=== PATIENT | female | born 1945 | race Caucasian/White ===

== ENCOUNTER 2018-11-27 16:02 | Outpatient (CLI) | payer BC, MEDICARE | END 2018-11-27 17:00 | disposition home or self-care (01) | LOC: SLEEP 16:02 | PROVIDERS: ATTEND Otolaryngology Otolaryngology/Facial Plastic Surgery | DX: G47.33 Obstructive sleep apnea (adult) (pediatric) (principal) ==

== ENCOUNTER 2021-01-13 06:41 | Inpatient (IN) | payer BC, MEDICARE ==
[~2021-01-13] VITALS: Ht 154 cm; Wt 89.5 kg
[2021-01-13] MEDS ORDERED: ONDANSETRON 4 MG/2 ML (SDV) Z0FRAN ONE (06:58)
[2021-01-13] MEDS ORDERED: ONDANSETRON 4 MG/2 ML (SDV) Z0FRAN IVP ONE (07:00)
[2021-01-13] MEDS ORDERED: NS IV 1000 ML 1,000 ML IV ONE (07:00)
[2021-01-13 07:09] LABS: BASOPHILS % (AUTO) 0 % (0-10); EOSINOPHILS # (AUTO) 0.1 10^3/uL (0.0-0.3); EOSINOPHILS % (AUTO) 1 % (0-10); HEMATOCRIT 50 % (35-52); HEMOGLOBIN 15.4 g/dL (11.5-16.0); LYMPHOCYTES # (AUTO) 0.6 10^3/uL (1.0-4.0); LYMPHOCYTES % (AUTO) 5 % (12-44); MEAN CORPUSCULAR HEMOGLOBIN 26 pg (25-34); MEAN CORPUSCULAR HGB CONC 31 g/dL (32-36); MEAN CORPUSCULAR VOLUME 85 fL (80-99); MEAN PLATELET VOLUME 9.4 fL (9.0-12.2); MONOCYTES # (AUTO) 0.7 10^3/uL (0.0-1.0); MONOCYTES % (AUTO) 6 % (0-12); NEUTROPHILS # (AUTO) 10.3 10^3/uL (1.8-7.8); NEUTROPHILS % (AUTO) 87 % (42-75); PLATELET COUNT 205 10^3/uL (130-400); WHITE BLOOD COUNT 11.8 10^3/uL (4.3-11.0)
[2021-01-13] MEDS ORDERED: ACETAMINOPHEN 650 MG SUPP (TYLENOL) PR ONE (07:15)
[2021-01-13 07:16] LABS: ALBUMIN 3.7 GM/DL (3.2-4.5); POTASSIUM 4.2 MMOL/L (3.6-5.0)
[2021-01-13] MEDS ORDERED: ACETAMINOPHEN 650 MG SUPP (TYLENOL) ONE (07:16)
[2021-01-13 07:18] LABS: CALCIUM 9.5 MG/DL (8.5-10.1)
[2021-01-13 07:19] LABS: TOTAL PROTEIN 6.7 GM/DL (6.4-8.2)
[2021-01-13 07:20] LABS: BILIRUBIN,TOTAL 2.2 MG/DL (0.1-1.0)
[2021-01-13 07:22] LABS: CREATININE SERUM 0.89 MG/DL (0.60-1.30)
--- NOTE | 2021-01-13 07:22 | ED General ---
General Chief Complaint: Cough/Cold/Flu Symptoms Stated Complaint: N,V,WEAKNESS Nursing Triage Note: TO ED VIA [facility] TO ROOM 9 UNDER COVID PRECAUTIONS NEGATIVE PRESSURE. PER EMS PT VOMITING ALL NIGHT. PT C/O N/V, WEAKNESS, ABD PAIN, GENERALIZED MUSCLE ACHES, COUGH, SOA. HAS HAD COVID VACCINE. Source of Information: Patient Exam Limitations: No Limitations (AASHISH SWIFT MD) History of Present Illness Date Seen by Provider: Jan 13, 2021 Time Seen by Provider: 06:44 Initial Comments This 75-year-old woman presents to the ER this morning via EMS with symptoms of diffuse myalgia and aches, vomiting, diarrhea, shortness of breath, hypoxia, and altered mental status. Symptoms started last night and have progressed. She has history of renal transplant and is immunocompromised. She also is diabetic and uses an insulin pump with continuous glucose monitoring. EMS reports temperature of 100.7 and oxygen saturation of 90% on room air. Patient is alert and responds to voice but she does not answer questions in a meaningful manner. She generally responds with "oh God" or "I do not know" when I asked her questions. History was obtained from her and from EMS. She was vaccinated with the Moderna COVID-19 vaccine in July but she is immunocompromise. She also has history of coronary artery disease and CABG. Her primary care provider is Columba Vel[facility]quez in [place]. 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 Deleon at [facility]. Her transplant lead is Dr. Hutchinson at [facility]. reports her dose of mycophenolate was recently reduced and she recently finished a course of Diflucan 200 mg daily for oral candidiasis. (AASHISH SWIFT MD) Allergies and Home Medications Allergies Coded Allergies: Cephalosporins (Verified Allergy, Mild, rash, 01/13/21) adhesive tape (Verified Allergy, Mild, rash, 01/13/21) Penicillins (Verified Allergy, Unknown, 01/13/21) iodine (Verified Allergy, Unknown, 01/13/21) latex (Verified Allergy, Unknown, 01/13/21) Uncoded Allergies: IV Contrast (Allergy, Unknown, 01/13/21) renal transplant pt Patient Home Medication List Home Medication List Reviewed: Yes (AASHISH SWIFT MD) Review of Systems Review of Systems Constitutional: see HPI, fever EENTM: no symptoms reported Respiratory: no symptoms reported Cardiovascular: no symptoms reported Gastrointestinal: see HPI Genitourinary: no symptoms reported Musculoskeletal: see HPI, muscle pain Skin: no symptoms reported Psychiatric/Neurological: See HPI Hematologic/Lymphatic: No Symptoms Reported Immunological/Allergic: no symptoms reported (AASHISH SWIFT MD) Past Eekeoru-Obirqp-Wbapma Hx Patient Social History Tobacco Use?: No (AASHISH SWIFT MD) Immunizations Up To Date COVID19 Vaccine Host Coordinator: STATES HAS HAD BUT UNKNOWN WHICH KIND (AASHISH SWIFT MD) Past Medical History Surgery/Hospitalization HX: HX KIDNEY TRANSPLANT PT UNABLE TO GIVE INFORMATION Surgeries: Yes CABG, Joint Replacement (Hip), Kidney Transplant Respiratory: No Cardiac: Yes Coronary Artery Disease Neurological: No : No Reproductive Disorders: No Genitourinary: No Gastrointestinal: No Musculoskeletal: Yes Chronic Back Pain Endocrine: Yes Diabetes, 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) HEENT: No Cancer: No Did You Recieve Any Treatments: No Psychosocial: No Integumentary: No (AASHISH SWIFT MD) Physical Exam-Suspected Sepsis Physical Exam Vital Signs Vital Signs - First Documented 01/13/21 01/13/21 06:49 07:03 Temp 37.9 Pulse 112 Resp 24 B/P (MAP) 134/100 (111) Pulse Ox 93 O2 Delivery Room Air O2 Flow Rate 2.00 (BRAYDEN NINO MD) Vital Signs Capillary Refill : Less Than 3 Seconds (AASHISH SWIFT MD) Blood Pressure Mean: 111 Height, Weight, BMI Height: '" Weight: lbs. oz. kg; BMI Method: General Appearance: WD/WN, Moderate Distress HEENT: PERRL/EOMI, Normal ENT Inspection Neck: Normal Inspection Respiratory: Lungs Clear, Normal Breath Sounds, No Accessory Muscle Use Cardiovascular: No Edema, No Murmur, Tachycardia Gastrointestinal: Normal Bowel Sounds, Soft; No Distended; Tenderness (Generalized) Extremity: Normal Inspection, No Pedal Edema, Other (Realized tenderness and sensitivity) Neurologic/Psychiatric: Alert, No Motor/Sensory Deficits, energy administrator II-XII Norm as Tested, Other (Agitated and irritable, responsive but not answering questions consistently) Skin: normal color, warm/dry (AASHISH SWIFT MD) Focused Exam Lactate Level 01/13/21 12:34: Lactic Acid Level 2.01*H 01/13/21 15:16: Lactic Acid Level 2.17*H 01/13/21 16:30: Lactic Acid Level 1.85 (BRAYDEN NINO MD) Lactic Acid Level Laboratory Tests Test 01/13/21 16:30 Lactic Acid Level 1.85 MMOL/L (0.50-2.00) (BRAYDEN NINO MD) Progress/Results/Core Measures Suspected Sepsis SIRS Temperature: Pulse: 112 Respiratory Rate: 24 Laboratory Tests 01/13/21 06:55: White Blood Count 11.8H 01/13/21 16:30: White Blood Count 13.2H Blood Pressure 134 /100 Mean: 111 01/13/21 12:34: Lactic Acid Level 2.01*H 01/13/21 15:16: Lactic Acid Level 2.17*H 01/13/21 16:30: Lactic Acid Level 1.85 Laboratory Tests 01/13/21 06:55: Creatinine 0.89, INR Comment 1.0, Platelet Count 205, Total Bilirubin 2.2H 01/13/21 16:30: Creatinine 0.76, Platelet Count 183, Total Bilirubin 2.6H (AASHISH SWIFT MD) Results/Orders Lab Results Laboratory Tests Test 01/13/21 06:55 01/13/21 07:10 01/13/21 08:15 01/13/21 09:00 Range/Units White Blood Count 11.8 H 4.3-11.0 10^3/uL Red Blood Count 5.94 H 3.80-5.11 10^6/uL Hemoglobin 15.4 11.5-16.0 g/dL Hematocrit 50 35-52 % Mean Corpuscular Volume 85 80-99 fL Mean Corpuscular Hemoglobin 26 25-34 pg Mean Corpuscular Hemoglobin Concent 31 L 32-36 g/dL Red Cell Distribution Width 15.8 H 10.0-14.5 % Platelet Count 205 130-400 10^3/uL Mean Platelet Volume 9.4 9.0-12.2 fL Immature Granulocyte % (Auto) 1 % Neutrophils (%) (Auto) 87 H 42-75 % Lymphocytes (%) (Auto) 5 L 12-44 % Monocytes (%) (Auto) 6 0-12 % Eosinophils (%) (Auto) 1 0-10 % Basophils (%) (Auto) 0 0-10 % Neutrophils # (Auto) 10.3 H 1.8-7.8 10^3/uL Lymphocytes # (Auto) 0.6 L 1.0-4.0 10^3/uL Monocytes # (Auto) 0.7 0.0-1.0 10^3/uL Eosinophils # (Auto) 0.1 0.0-0.3 10^3/uL Basophils # (Auto) 0.0 0.0-0.1 10^3/uL Immature Granulocyte # (Auto) 0.1 0.0-0.1 10^3/uL Neutrophils % (Manual) 81 % Lymphocytes % (Manual) 8 % Monocytes % (Manual) 4 % Band Neutrophils 7 % Blood Morphology Comment NORMAL Prothrombin Time 13.4 12.2-14.7 SEC INR Comment 1.0 0.8-1.4 Activated Partial Thromboplast Time 24 24-35 SEC D-Dimer 3.40 H 0.00-0.49 UG/ML Sodium Level 140 135-145 MMOL/L Potassium Level 4.2 3.6-5.0 MMOL/L Chloride Level 100 98-107 MMOL/L Carbon Dioxide Level 24 21-32 MMOL/L Anion Gap 16 H 5-14 MMOL/L Blood Urea Nitrogen 14 7-18 MG/DL Creatinine 0.89 0.60-1.30 MG/DL Estimat Glomerular Filtration Rate 62 BUN/Creatinine Ratio 16 Glucose Level 238 H 70-105 MG/DL Lactic Acid Level 3.22 *H 0.50-2.00 MMOL/L Calcium Level 9.5 8.5-10.1 MG/DL Corrected Calcium 9.7 8.5-10.1 MG/DL Magnesium Level 1.4 L 1.6-2.4 MG/DL Total Bilirubin 2.2 H 0.1-1.0 MG/DL Aspartate Amino Transf (AST/SGOT) 814 H 5-34 U/L Alanine Aminotransferase (ALT/SGPT) 475 H 0-55 U/L Alkaline Phosphatase 282 H 40-136 U/L Lactate Dehydrogenase 1040 H 125-220 U/L Myoglobin 81.9 10.0-92.0 NG/ML Troponin I < 0.028 <0.028 NG/ML C-Reactive Protein High Sensitivity 1.64 H 0.00-0.50 MG/DL Total Protein 6.7 6.4-8.2 GM/DL Albumin 3.7 3.2-4.5 GM/DL Procalcitonin 1.07 H <0.10 NG/ML Influenza Type A (RT-PCR) Not Detected Not Detecte Influenza Type B (RT-PCR) Not Detected Not Detecte SARS-CoV-2 RNA (RT-PCR) Not Detected Not Detecte Urine Color YELLOW Urine Clarity CLEAR Urine pH 6.0 5-9 Urine Specific [place] 1.020 1.016-1.022 Urine Protein TRACE H NEGATIVE Urine Glucose (UA) 3+ H NEGATIVE Urine Ketones TRACE H NEGATIVE Urine Nitrite NEGATIVE NEGATIVE Urine Bilirubin NEGATIVE NEGATIVE Urine Urobilinogen 1.0 < = 1.0 MG/DL Urine Leukocyte Esterase NEGATIVE NEGATIVE Urine RBC (Auto) NEGATIVE NEGATIVE Urine RBC RARE /HPF Urine WBC 0-2 /HPF Urine Squamous Epithelial Cells 0-2 /HPF Urine Crystals PRESENT H /LPF Urine Amorphous Sediment RARE MICHOACANO URATES H /LPF Urine Bacteria NEGATIVE /HPF Urine Casts PRESENT /LPF Urine Hyaline Casts RARE /LPF Urine Mucus NEGATIVE /LPF Urine Culture Indicated NO Ammonia 35 H 11-32 UMOL/L Lipase 121 H 8-78 U/L Test 01/13/21 09:10 01/13/21 12:34 01/13/21 15:16 01/13/21 16:30 Range/Units Lactic Acid Level 2.69 *H 2.01 *H 2.17 *H 1.85 0.50-2.00 MMOL/L White Blood Count 13.2 H 4.3-11.0 10^3/uL Red Blood Count 4.73 3.80-5.11 10^6/uL Hemoglobin 12.2 # 11.5-16.0 g/dL Hematocrit 40 35-52 % Mean Corpuscular Volume 84 80-99 fL Mean Corpuscular Hemoglobin 26 25-34 pg Mean Corpuscular Hemoglobin Concent 31 L 32-36 g/dL Red Cell Distribution Width 15.7 H 10.0-14.5 % Platelet Count 183 130-400 10^3/uL Mean Platelet Volume 9.8 9.0-12.2 fL Immature Granulocyte % (Auto) 1 % Neutrophils (%) (Auto) 84 H 42-75 % Lymphocytes (%) (Auto) 6 L 12-44 % Monocytes (%) (Auto) 8 0-12 % Eosinophils (%) (Auto) 1 0-10 % Basophils (%) (Auto) 0 0-10 % Neutrophils # (Auto) 11.1 H 1.8-7.8 10^3/uL Lymphocytes # (Auto) 0.8 L 1.0-4.0 10^3/uL Monocytes # (Auto) 1.1 H 0.0-1.0 10^3/uL Eosinophils # (Auto) 0.1 0.0-0.3 10^3/uL Basophils # (Auto) 0.0 0.0-0.1 10^3/uL Immature Granulocyte # (Auto) 0.1 0.0-0.1 10^3/uL Sodium Level 141 135-145 MMOL/L Potassium Level 3.9 3.6-5.0 MMOL/L Chloride Level 106 98-107 MMOL/L Carbon Dioxide Level 24 21-32 MMOL/L Anion Gap 11 5-14 MMOL/L Blood Urea Nitrogen 11 7-18 MG/DL Creatinine 0.76 0.60-1.30 MG/DL Estimat Glomerular Filtration Rate 74 BUN/Creatinine Ratio 14 Glucose Level 129 H 70-105 MG/DL Calcium Level 8.6 8.5-10.1 MG/DL Corrected Calcium 9.4 8.5-10.1 MG/DL Total Bilirubin 2.6 H 0.1-1.0 MG/DL Aspartate Amino Transf (AST/SGOT) 265 H 5-34 U/L Alanine Aminotransferase (ALT/SGPT) 292 H 0-55 U/L Alkaline Phosphatase 189 H 40-136 U/L C-Reactive Protein High Sensitivity 7.09 H 0.00-0.50 MG/DL Total Protein 5.3 L 6.4-8.2 GM/DL Albumin 3.0 L 3.2-4.5 GM/DL Procalcitonin 2.64 H <0.10 NG/ML (BRAYDEN NINO MD) Medications Given in ED Current Medications Medications Dose Ordered Sig/Nehemiah Route Start Time Stop Time Status Last Admin Dose Admin Enoxaparin Sodium 80 mg ONCE ONCE SC 01/13/21 13:15 01/13/21 13:16 DC 01/13/21 13:17 80 MG Lactated Ringer's 1,000 ml @ 125 mls/hr Q8H ONCE IV 01/13/21 13:15 01/13/21 21:14 01/13/21 13:12 125 MLS/HR Lactated Ringer's 1,000 ml @ 125 mls/hr Q8H ONCE IV 01/13/21 18:30 01/14/21 02:29 01/13/21 19:04 125 MLS/HR Lidocaine HCl 10 ml ONCE ONCE TOP 01/13/21 09:00 01/13/21 09:01 DC 01/13/21 09:14 10 ML Magnesium Sulfate/ Dextrose 100 ml @ 100 mls/hr ONCE ONCE IV 01/13/21 10:30 01/13/21 11:29 DC 01/13/21 10:25 100 MLS/HR Meropenem 500 mg/ Sterile Water 10 ml @ 200 mls/hr ONCE ONCE IV 01/13/21 08:30 01/13/21 08:32 DC 01/13/21 09:13 200 MLS/HR (BRAYDEN NINO MD) Vital Signs/I&O Capillary Refill : Less Than 3 Seconds (AASHISH SWIFT MD) Blood Pressure Mean: 111 Progress Note #1: Time: 07:43 Progress Note Septic work-up is underway. IV fluids are infusing. Tylenol suppository was given for fever. Patient seems more alert and talkative now. Respiratory status is stable. COVID-19 and influenza screening swabs were negative. Blood cultures and lactic acid were obtained. Lactic acid is elevated. D-dimer is elevated but CT angiogram will be avoided due to her renal transplant status. We may presumptively treat for pulmonary embolism pending the remainder of the w ork-up until a VQ scan can be performed. CT abdomen and pelvis without is being obtained for further evaluation of abdominal pain and elevated transaminases. Zofran was given for nausea. Progress Note #2: Time: 13:04 Progress Note Septic work-up did not reveal any definite source of infection. Gallbladder ultrasound was inconclusive. HIDA scan is recommended but not available today as there is no remaining nuclear contrast available. I discussed the case with Dr. Quiroz (surgeon) and Dr. Sanchez (hospitalist). Admission to this facility is not excepted at this time as patient has significant issues requiring transplant team, hepatology, and nephrology. [facility] is her home facility for the specialty services, but they are not able to facilitate admission for her at this time. [facility] notified me of this declination at 11:46. Have discussed the situation with the patient and family. Since surgery seems on likely to occur anytime soon, we will allow her to take her oral medications. I will also administer Lovenox as presumptive therapy for possible PE given her elevated D-dimer. I will now be seeking transfer to a facility with the above specialty services. 19:40 - At the time of transition of care I had checked with numerous facilities [facility] [place] including the [facility] in [place], [facility] ([facility]), [facility] in [place], [facility] in [facility], and [facility] in [place]. There are absolutely no beds available in the [facility] [place] to transfer this patient. There was hesitation to admit the patient at this facility given her needs for specialty care. However, given inability to transfer to any other regional facility, arrangements may need to be made for local admission and continued care/work-up until suitable arrangements can be made for transfer. Patient will now be allowed to eat and take her home medications. Vital signs are stable at this time. Care is being transitioned to Dr. NINO. (AASHISH SWIFT MD) Progress Note : Time: 19:45 Progress Note I have assisted Dr. Swift and patient placement. Multiple hospitals were called to try to find facilities to accept transfer as far out as [place] and no beds available in the region. I have rediscussed the case with both Dr. Quiroz and Dr. Sanchez. We will be able to get HIDA scan tomorrow. We have initiated meropenem and vancomycin due to concerns about cholecystitis and elevating white count. Patient has had improvement in her AST and ALT but total bili has increased slightly. Lactic acid is improved. Overall she is doing better and pain is improved. They have agreed to accept the patient here with the understanding that discussion with the patient will be had regarding concerns about possible need for transfer later if she has ductal stone. I did discuss a ll of this at length with the patient and family and they verbalized understanding. We will admit to surgical bed with HIDA scan to be done tomorrow. We will initiate heparin drip at 2 AM (12 hours after Lovenox dosing). We will initiate bridge orders, sepsis order set orders and and the insulin sliding scale orders with heparin drip orders to be initiated at 2 AM using ACS protocol. (BRAYDEN NINO MD) ECG Initial ECG Impression Date: Jan 13, 2021 Initial ECG Impression Time: 07:16 Initial ECG Rate: 105 Initial ECG Rhythm: S.Tach Comment Sinus tachycardia with no ST elevation or depression. No abnormal intervals or axis deviation. (AASHISH SWIFT MD) Departure Communication (Admissions) Time/Spoke to Admitting Phy: 19:14 Time/Spoke to Consulting Phy: 19:05 (BRAYDEN NINO MD) Impression Primary Impression: Acute hepatitis Additional Impressions: Nausea and vomiting Qualified Codes: R11.2 - Nausea with vomiting, unspecified Abdominal pain Qualified Codes: R10.84 - Generalized abdominal pain Elevated d-dimer Hypoxia Cholecystitis Disposition: ADMITTED INPATIENT Condition: Stable Admissions Decision to Admit Reason: Admit from ER (General) Decision to Admit/Date: Jan 13, 2021 Time/Decision to Admit Time: 19:45 (BRAYDEN NINO MD) Departure-Patient Inst. Referrals: COLUMBA VELÁZQUEZ MD (PCP/Family) Primary Care Physician AASHISH SWIFT MD Jan 13, 2021 07:22 BRAYDEN NINO MD Jan 13, 2021 19:51
[2021-01-13 07:24] LABS: BILIRUBIN,URINE NEGATIVE (NEGATIVE); CLARITY,URINE CLEAR; COLOR,URINE YELLOW; GLUCOSE, URINE (UA) 3+ (NEGATIVE); KETONES,URINE TRACE (NEGATIVE); LEUKOCYTE ESTERASE ,URINE NEGATIVE (NEGATIVE); NITRITE,URINE NEGATIVE (NEGATIVE); PROTEIN,URINE TRACE (NEGATIVE)
[2021-01-13 07:26] LABS: FIBRIN DEGRADATION PRODUCTS 3.4 UG/ML (0.00-0.49); PROTHROMBIN TIME PATIENT 13.4 SEC (12.2-14.7)
[2021-01-13 07:40] LABS: MAGNESIUM 1.4 MG/DL (1.6-2.4)
[2021-01-13 07:46] LABS: BACTERIA,URINE NEGATIVE /HPF; RBC,URINE RARE /HPF; SQUAMOUS EPITHELIAL CELL,UR 0-2 /HPF; WBC,URINE 0-2 /HPF
[2021-01-13 07:47] LABS: AMORPHOUS SEDIMENT,UR RARE AMOR URATES /LPF; HYALINE CASTS, URINE RARE /LPF
[2021-01-13 07:51] LABS: BAND NEUTROPHILS 7 %; LYMPHOCYTES % (MANUAL) 8 %; MONOCYTES % (MANUAL) 4 %; NEUTROPHILS % (MANUAL) 81 %; RBC MORPH NORMAL
--- NOTE | 2021-01-13 08:19 | Diagnostic Imaging Report ---
INDICATION: Vomiting all night, nausea, vomiting, weakness, abdominal pain. TECHNIQUE: Single view chest 8:02 AM. CORRELATION STUDY: None FINDINGS: Poststernotomy change. Elevated right diaphragm and crowding at the right lung base with resultant atelectasis. Infiltrate not completely excluded. Left costophrenic angle incompletely imaged. Heart size and mediastinum are within normal limits given technique. IMPRESSION: 1. Elevated right diaphragm with right lung volume loss. Basilar infiltrate would be difficult to exclude. Dictated by: Dictated on workstation # [id number]
--- NOTE | 2021-01-13 08:23 | Diagnostic Imaging Report ---
INDICATION: Abdominal pain and vomiting. TECHNIQUE: Multiple contiguous axial images were obtained through the abdomen and pelvis without the use of intravenous contrast. Auto Exposure Controls were utilized during the CT exam to meet ALARA standards for radiation dose reduction. There is no prior study for comparison. FINDINGS: The visualized portions of the lung bases show some mild right basilar atelectasis. There is no pleural fluid or free intraperitoneal air. The liver shows no focal lesion without contrast. Gallbladder appears grossly unremarkable. The spleen, adrenals, and pancreas appear normal. The [place] kidneys are atrophic and contain a few small cysts. There is a transplant kidney in the right iliac fossa. The transplant kidney appears grossly unremarkable with no evidence for hydronephrosis or perinephric fluid collection. The visualized bowel loops are nondistended or thickened. There is no overt bowel obstruction. There is a small periumbilical hernia containing fat. There are uncomplicated sigmoid diverticuli. There is no pelvic mass or lymphadenopathy. There is a Sotomayor catheter in the bladder. There is a right hip prosthesis. There are extensive arterial calcifications throughout the arterial tree. IMPRESSION: Status post renal transplant. Atrophic [place] kidneys. No abdominal mass or abnormal fluid collection or sign of bowel obstruction. Small ventral hernia containing fat in the periumbilical region. Uncomplicated sigmoid diverticulosis. Dictated by: Dictated on workstation # [id number]
[2021-01-13] MEDS ORDERED: MEROPENEM 500 MG in WATER (STERILE) FOR INJECTION 10 ML IV ONE (08:30)
[2021-01-13] MEDS ORDERED: LIDOCAINE UROJET 2% GEL 10 ML PKG TOP ONE (09:00)
[2021-01-13] MEDS ORDERED: morphine PF (DURAMORPH) 10 MG/10 ML AMP IV ONE (10:30)
[2021-01-13] MEDS ORDERED: MAGNESIUM 1 GM/100 ML IVPB 100 ML IV ONE (10:30)
[2021-01-13] MEDS ORDERED: morphine INJ 10 MG/ML 1ML (SYR OR VIAL) IVP STA ×3 (10:37→16:02)
--- NOTE | 2021-01-13 10:49 | Diagnostic Imaging Report ---
PROCEDURE: US Gallbladder. TECHNIQUE: Multiple real-time grayscale images were obtained over the right upper quadrant in various projections. INDICATION: Elevated liver enzymes. COMPARISON: CT abdomen pelvis from earlier same day FINDINGS: The liver is normal in size and echogenicity. There is no focal hepatic mass. The main portal vein is patent with antegrade flow. The gallbladder is suboptimally visualized due to surrounding bowel gas. There appears to be either decompressed gallbladder with pericholecystic fluid or some gallbladder wall sloughing. The common bile duct measures up to 0.5 cm in diameter. No intrahepatic biliary dilation. The visualized portions of the pancreas are normal. Portions of the head and tail are obscured by overlying bowel gas. Right lower quadrant renal transplant within the iliac fossa is normal in appearance. IMPRESSION: 1. Poor visualization of the gallbladder due to overlying bowel gas from the colon. Where visualized, there may be either pericholecystic fluid or less likely sloughing of the gallbladder wall. Consider surgical consultation if not already performed. If further imaging is warranted, consider nuclear medicine HIDA scan to evaluate for cystic duct patency. 2. No biliary duct dilatation. Dictated by: Dictated on workstation # [id number]
[2021-01-13] MEDS ORDERED: LACTATED RINGERS 1,000 ML IV ONE ×2 (13:15→18:30)
[2021-01-13] MEDS ORDERED: ENOXAPARIN 80 MG/0.8 ML (LOVENOX) SYR SC ONE (13:15)
[2021-01-13 16:34] LABS: BASOPHILS % (AUTO) 0 % (0-10); EOSINOPHILS # (AUTO) 0.1 10^3/uL (0.0-0.3); EOSINOPHILS % (AUTO) 1 % (0-10); HEMATOCRIT 40 % (35-52); HEMOGLOBIN 12.2 g/dL (11.5-16.0); LYMPHOCYTES # (AUTO) 0.8 10^3/uL (1.0-4.0); LYMPHOCYTES % (AUTO) 6 % (12-44); MEAN CORPUSCULAR HEMOGLOBIN 26 pg (25-34); MEAN CORPUSCULAR HGB CONC 31 g/dL (32-36); MEAN CORPUSCULAR VOLUME 84 fL (80-99); MEAN PLATELET VOLUME 9.8 fL (9.0-12.2); MONOCYTES # (AUTO) 1.1 10^3/uL (0.0-1.0); MONOCYTES % (AUTO) 8 % (0-12); NEUTROPHILS # (AUTO) 11.1 10^3/uL (1.8-7.8); NEUTROPHILS % (AUTO) 84 % (42-75); PLATELET COUNT 183 10^3/uL (130-400); WHITE BLOOD COUNT 13.2 10^3/uL (4.3-11.0)
[2021-01-13 16:45] LABS: POTASSIUM 3.9 MMOL/L (3.6-5.0)
[2021-01-13 16:47] LABS: CALCIUM 8.6 MG/DL (8.5-10.1)
[2021-01-13 16:48] LABS: TOTAL PROTEIN 5.3 GM/DL (6.4-8.2)
[2021-01-13 16:50] LABS: BILIRUBIN,TOTAL 2.6 MG/DL (0.1-1.0)
[2021-01-13 16:51] LABS: CREATININE SERUM 0.76 MG/DL (0.60-1.30)
[2021-01-13] MEDS ORDERED: VANCOMYCIN INJECTION 750 MG in NS (IVPB) 250 ML IV SCH (18:30)
[2021-01-13] MEDS: MEROPENEM 500 MG in WATER (STERILE) FOR INJECTION 10 ML IV SCH (18:45)
[2021-01-13] MEDS ORDERED: VANCOMYCIN INJECTION 1,500 MG in NS IV 500 ML 500 ML IV NR (19:00)
[2021-01-13] MEDS ORDERED: morphine INJ 10 MG/ML 1ML (SYR OR VIAL) IVP ONE (20:45)
[2021-01-13 21:22] LABS: HEPATITIS C ANTIBODY C Non-Reactive (Non-Reactive)
[2021-01-13 21:30] VITALS: BP 119/69
[2021-01-13 21:45] VITALS: BP 112/68
[2021-01-13 22:00] VITALS: BP 118/69
[2021-01-13 22:15] VITALS: BP 104/65
[2021-01-13] MEDS: NS IV 1000 ML 1,000 ML IV SCH (22:40)
[2021-01-13] MEDS ORDERED: ONDANSETRON 4 MG/2 ML (SDV) Z0FRAN IV PRN (22:45)
[2021-01-13 23:25] VITALS: BP 127/66
[2021-01-13] MEDS: morphine INJ 4 MG/ML 1 ML (VIAL/SYRINGE) IV PRN (23:25)
[2021-01-14] VITALS (7 sets, daily range): BP systolic 130–159; BP diastolic 67–88
[2021-01-14] MEDS ORDERED: HEParin DRIP 25000 UNIT/500ML 500 ML IV SCH
[2021-01-14] MEDS: MEROPENEM 500 MG in WATER (STERILE) FOR INJECTION 10 ML IV SCH ×4 (01:09→20:47)
[2021-01-14] MEDS ORDERED: HEParin 1000 UNIT/ML (10ML VIAL) FOR BOLUS ONE (02:07)
[2021-01-14] MEDS: HEParin DRIP 25000 UNIT/500ML 500 ML IV SCH (02:45)
[2021-01-14] MEDS ORDERED: HEParin 1000 UNIT/ML (10ML VIAL) FOR BOLUS IV ONE (03:00)
[2021-01-14] MEDS: NS IV 1000 ML 1,000 ML IV SCH ×3 (03:58→21:54)
[2021-01-14 04:26] LABS: BASOPHILS % (AUTO) 0 % (0-10); EOSINOPHILS # (AUTO) 0.1 10^3/uL (0.0-0.3); EOSINOPHILS % (AUTO) 1 % (0-10); HEMATOCRIT 45 % (35-52); HEMOGLOBIN 13.3 g/dL (11.5-16.0); LYMPHOCYTES # (AUTO) 1.1 10^3/uL (1.0-4.0); LYMPHOCYTES % (AUTO) 8 % (12-44); MEAN CORPUSCULAR HEMOGLOBIN 26 pg (25-34); MEAN CORPUSCULAR HGB CONC 30 g/dL (32-36); MEAN CORPUSCULAR VOLUME 86 fL (80-99); MEAN PLATELET VOLUME 9.8 fL (9.0-12.2); MONOCYTES # (AUTO) 1.1 10^3/uL (0.0-1.0); MONOCYTES % (AUTO) 8 % (0-12); NEUTROPHILS # (AUTO) 11.3 10^3/uL (1.8-7.8); NEUTROPHILS % (AUTO) 83 % (42-75); PLATELET COUNT 182 10^3/uL (130-400); WHITE BLOOD COUNT 13.6 10^3/uL (4.3-11.0)
[2021-01-14 04:37] LABS: ALBUMIN 3.3 GM/DL (3.2-4.5); POTASSIUM 4.1 MMOL/L (3.6-5.0)
[2021-01-14 04:38] LABS: CALCIUM 9.3 MG/DL (8.5-10.1)
[2021-01-14 04:41] LABS: BILIRUBIN,TOTAL 3.1 MG/DL (0.1-1.0)
[2021-01-14 04:43] LABS: CREATININE SERUM 0.8 MG/DL (0.60-1.30)
[2021-01-14] MEDS: morphine INJ 4 MG/ML 1 ML (VIAL/SYRINGE) IV PRN ×3 (05:17→18:04)
[2021-01-14] MEDS: inSUlin ASPART (NovoLOG) 1 UNIT/0.01 ML (CHARGE PER UNIT) SC SCH ×4 (06:28→19:57)
[2021-01-14] MEDS ORDERED: CATHETER FLUSH 10 ML SYR IV PRN (07:30)
--- NOTE | 2021-01-14 10:10 | History & Physical-Hospitalist ---
History of Present Illness HPI/Chief Complaint Pt is a 75yoCF with a PMH of renal transplant who presented to the ER due to 1 week of nausea and confusion. She was unable to provide much history in the ER due to AMS but was found to be febrile with a leukocytosis and transaminitis. Due to her history of a renal transplant attempts and severe sepsis in the ER with AMS attempts were made at transfer to her transplant team then. Due to COVID surgery regionally the ER called roughly 20 places and they were unable to find placement for her. She was admitted here for further care. CT was doen and showed her renal transplant and uncomplicated diverticulosis. Abd usg was unrevealing as well. HIDA scan was ordered for this morning. She reports feeling much better today and really her only issue is irritation from the catheter. We discussed plan for HIDA scan and possible need for surgery or transfer depending on the findings. Source: patient Date Seen 01/14/21 Time Seen by a Provider: 10:10 Attending Physician Nataliia Sanchez MD PCP Columba Velázquez MD Referring Physician Date of Admission Jan 13, 2021 at 19:40 Home Medications & Allergies Home Medications Reviewed patient Home Medication Reconciliation performed by pharmacy medication reconciliations optoelectronic technician and/or nursing. Patients Allergies have been reviewed. Allergies Allergies Coded Allergies Cephalosporins (Verified Allergy, Mild, rash, 01/13/21) adhesive tape (Verified Allergy, Mild, rash, 01/13/21) Penicillins (Verified Allergy, Unknown, 01/13/21) iodine (Verified Allergy, Unknown, 01/13/21) latex (Verified Allergy, Unknown, 01/13/21) Uncoded Allergies IV Contrast ( Allergy, Unknown, 01/13/21) renal transplant pt Past Letgurx-Ahltov-Ajjwfd Hx Patient Social History Tobacco Use?: No Use of E-Cig and/or Vaping dev: No Substance use?: No Alcohol Use?: No Pt feels they are or have been: No Current Status status: No status: No Advance Directives: No Communicates: Verbally Primary Language: Danish Preferred Spoken Language: Danish Is interpretation needed?: No Implanted or Applied Medical D: Insulin pump Past Medical History Surgeries: CABG, Joint Replacement (Hip), Kidney Transplant Coronary Artery Disease Chronic Back Pain Diabetes, 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) Did You Recieve Any Treatments: No Review of Systems Constitutional: fever, malaise EENTM: no symptoms reported Respiratory: No cough, No short of breath Cardiovascular: No chest pain, No edema, No palpitations Gastrointestinal: abdominal pain, nausea, vomiting Genitourinary: dysuria Musculoskeletal: no symptoms reported Skin: no symptoms reported Psychiatric/Neurological: No Symptoms Reported Physical Exam Physical Exam Vital Signs Vital Signs - First Documented 01/13/21 01/13/21 01/15/21 06:49 07:03 02:04 Temp 37.9 Pulse 112 Resp 24 B/P (MAP) 134/100 (111) Pulse Ox 93 O2 Delivery Room Air O2 Flow Rate 2.00 FiO2 21 Capillary Refill : Less Than 3 Seconds Height, Weight, BMI Height: '" Weight: lbs. oz. kg; 31.41 BMI Method: General Appearance: No Apparent Distress, WD/WN, Obese HEENT: PERRL/EOMI, Moist Mucous Membranes; No Scleral Icterus (L), No Scleral Icterus (R) Neck: Normal Inspection, Supple Respiratory: Lungs Clear, No Accessory Muscle Use, No Respiratory Distress Cardiovascular: Regular Rate, Rhythm, No JVD, No Murmur Gastrointestinal: Normal Bowel Sounds, Soft; No Distended, No Guarding; Tenderness (mild RUQ) Extremity: Normal Capillary Refill, No Calf Tenderness, No Pedal Edema Neurologic/Psychiatric: Alert, Oriented x3, No Motor/Sensory Deficits Skin: Normal Color, Warm/Dry Results Results/Procedures Labs Laboratory Tests 01/15/21 04:39 01/16/21 04:03 Patient resulted labs reviewed. Imaging: Reviewed Imaging Report Imaging [facility], [place] NAME: EMMANUELTEVIN [facility] REC#: [id number] PT STATUS: REG ER : 1945 PHYSICIAN: AASHISH BOND MD ADMIT DATE: 01/13/21/ER Signed Date of Exam:01/13/21 CT ABDOMEN/PELVIS WO INDICATION: Abdominal pain and vomiting. TECHNIQUE: Multiple contiguous axial images were obtained through the abdomen and pelvis without the use of intravenous contrast. Auto Exposure Controls were utilized during the CT exam to meet ALARA standards for radiation dose reduction. There is no prior study for comparison. FINDINGS: The visualized portions of the lung bases show some mild right basilar atelectasis. There is no pleural fluid or free intraperitoneal air. The liver shows no focal lesion without contrast. Gallbladder appears grossly unremarkable. The spleen, adrenals, and pancreas appear normal. The [place] kidneys are atrophic and contain a few small cysts. There is a transplant kidney in the right iliac fossa. The transplant kidney appears grossly unremarkable with no evidence for hydronephrosis or perinephric fluid collection. The visualized bowel loops are nondistended or thickened. There is no overt bowel obstruction. There is a small periumbilical hernia containing fat. There are uncomplicated sigmoid diverticuli. There is no pelvic mass or lymphadenopathy. There is a Sotomaoyr catheter in the bladder. There is a right hip prosthesis. There are extensive arterial calcifications throughout the arterial tree. IMPRESSION: Status post renal transplant. Atrophic [place] kidneys. No abdominal mass or abnormal fluid collection or sign of bowel obstruction. Small ventral hernia containing fat in the periumbilical region. Uncomplicated sigmoid diverticulosis. Dictated by: Dictated on workstation # [id number] Dict: 01/13/21816 Trans: 01/13/21 0835 [id number] Interpreted by: ALFREDO BOSE MD Electronically signed by: ALFREDO BOSE MD 01/13/21 0835 [facility], [place] NAME: TEVIN BENIETZ [facility] REC#: [id number] PT STATUS: REG ER : 1945 PHYSICIAN: AASHISH BOND MD ADMIT DATE: 01/13/21/ER Signed Date of Exam:01/13/21 US GALLBLADDER [id number] PROCEDURE: US Gallbladder. TECHNIQUE: Multiple real-time grayscale images were obtained over the right upper quadrant in various projections. INDICATION: Elevated liver enzymes. COMPARISON: CT abdomen pelvis from earlier same day FINDINGS: The liver is normal in size and echogenicity. There is no focal hepatic mass. The main portal vein is patent with antegrade flow. The gallbladder is suboptimally visualized due to surrounding bowel gas. There appears to be either decompressed gallbladder with pericholecystic fluid or some gallbladder wall sloughing. The common bile duct measures up to 0.5 cm in diameter. No intrahepatic biliary dilation. The visualized portions of the pancreas are normal. Portions of the head and tail are obscured by overlying bowel gas. Right lower quadrant renal transplant within the iliac fossa is normal in appearance. IMPRESSION: 1. Poor visualization of the gallbladder due to overlying bowel gas from the colon. Where visualized, there may be either pericholecystic fluid or less likely sloughing of the gallbladder wall. Consider surgical consultation if not already performed. If further imaging is warranted, consider nuclear medicine HIDA scan to evaluate for cystic duct patency. 2. No biliary duct dilatation. Dictated by: Dictated on workstation # [id number] Dict: 01/13/21 1044 Trans: 01/13/21 1226 [facility] [id number] Interpreted by: YAZMIN GRIGGS MD Electronically signed by: YAZMIN GRIGGS MD 01/13/21 1226 Assessment/Plan Admission Diagnosis Severe sepsis Admission Status: Inpatient Order (span 2 midnights) Reason for Inpatient Admission: see below Assessment and Plan Severe sepsis Immunocompromised state from renal transplant transaminitis acute hypoxic respiratory failure elevated d-dimer Unable to visualization gallblader on usg HIDA scan for today Liver enzymes trending down and hepatitis panel negative Continue IV abx Discussed that if HIDA shows obstruction she will require transfer for ERCP and due to COVID surge and regional hospitals being on diversion this may take days, they express understanding Lactic acidosis resolved Surgery consulted appreciate recs Continue heparin gtt for elevated d-dimer Continue immune suppressants HTN BP well controlled, trend DVT ppx: Heparin gtt for now until VQ scan Update at 1100: Hida scan reveals common duct obstruction. Will need transfer for ERCP Update at 1700: I called and updated family that I have an accepting facility in [place], [place]. [facility] does not have bed availability but is hopeful they will tomorrow. They have declined bed at [place] and would like to try to get to tomorrow. I clarified that this is not a safe bet that there will be a bed and they are gambling with the bed availibility. We did discuss the risks and benefits of this and they expressed understanding and would still like to wait and attempt [facility] tomorrow. Diagnosis/Problems Diagnosis/Problems (1) Severe sepsis (2) Renal transplant, status post (3) Acute hepatitis Status: Acute (4) Elevated d-dimer Status: Acute (5) Hypoxia Status: Acute MIRNA,NATALIIA M MD Jan 14, 2021 10:10
[2021-01-14] MEDS: VANCOMYCIN 1250 MG/NS 250 ML IVPB IV SCH ×4 (12:29→19:34)
--- NOTE | 2021-01-14 12:34 | Diagnostic Imaging Report ---
INDICATION: Hepatitis. TECHNIQUE: Patient was administered 5.3 mCi technetium-99m Choletec intravenously, and imaging over the abdomen was performed. Delayed imaging at 4 hours was also performed. FINDINGS: There is homogeneous uptake of activity throughout the liver. Images carried out at 60 minutes are without evidence of excretion of activity into the gallbladder or common duct. No bowel activity is seen. Delayed images demonstrate activity within the gallbladder. No definite bowel activity is seen, and findings are concerning for common duct obstruction. IMPRESSION: Patent cystic duct. No definite activity is seen in the small bowel, concerning for common duct obstruction. MRCP or ERCP could be performed for further evaluation. Dictated by: Dictated on workstation # [id number]
[2021-01-14] MEDS ORDERED: NEBI5TAB8 PO (12:46)
[2021-01-14] MEDS ORDERED: MYCO180T3 PO (12:46)
[2021-01-14] MEDS ORDERED: MAGN400T39 PO (12:46)
[2021-01-14] MEDS ORDERED: TACR1CAP8 PO (12:46)
[2021-01-14] MEDS ORDERED: DOCU100T2 PO (12:46)
[2021-01-14] MEDS ORDERED: KRIL1CAP18 PO (12:46)
[2021-01-14] MEDS ORDERED: EZET10TA49 PO (12:46)
[2021-01-14] MEDS ORDERED: ROSU40TA23 PO (12:46)
[2021-01-14] MEDS ORDERED: PRED5TAB PO (12:46)
[2021-01-14] MEDS ORDERED: OXYC10TA7 PO (12:46)
[2021-01-14] MEDS ORDERED: ASPI-1238 PO (12:46)
[2021-01-14] MEDS ORDERED: DEXL60CA PO (12:46)
[2021-01-14] MEDS ORDERED: SENN-273 PO (12:46)
[2021-01-14] MEDS ORDERED: LOSA25TA41 PO (12:46)
[2021-01-14] MEDS ORDERED: CALC-250 PO (12:46)
[2021-01-14] MEDS ORDERED: INSU100V16 SQ (12:46)
[2021-01-14] MEDS ORDERED: LOSARTAN 25 MG (COZAAR) TAB PO PRN (13:45)
[2021-01-14] MEDS ORDERED: SENNA W/DOCUSATE (SENOKOT S) TABLET PO PRN (13:45)
--- NOTE | 2021-01-14 15:26 | Consultation - Surgery ---
History of Present Illness History of Present Illness Patient Consulted On(dawit/time) 01/14/21 07:20 Date Seen by Provider: Jan 14, 2021 Time Seen by Provider: 07:20 History of Present Illness Consult requested by Dr. Caldwell, for questionable cholecystitis abdominal pain nausea and vomiting. Patient is a 75-year-old female who states that recently she been having right upper quadrant abdominal pain on and off. Patient prior to this has not had any significant issues. She is having nausea and vomiting and slightly increasing shortness of breath. Patient and her state that pain may be related to diet. Nothing really seem to make it better. Her pain was moderate to severe last night and today moderate as well. Patient states the pain medication does help. Patient had elevated white count and transaminitis and elevated bilirubin. The CT scan was normal and patient had gallbladder ultrasound that was not adequately visualized in gallbladder but suspicious for possible gallbladder pathology. Patient has history of renal transplant. She was unable to be transferred yesterday therefore she was admitted overnight. Patient to have HIDA scan today. Allergies and Home Medications Allergies Coded Allergies: Cephalosporins (Verified Allergy, Mild, rash, 01/13/21) adhesive tape (Verified Allergy, Mild, rash, 01/13/21) Penicillins (Verified Allergy, Unknown, 01/13/21) iodine (Verified Allergy, Unknown, 01/13/21) latex (Verified Allergy, Unknown, 01/13/21) Uncoded Allergies: IV Contrast (Allergy, Unknown, 01/13/21) renal transplant pt Home Medications Aspirin 81 Mg Tablet., 81 MG PO DAILY, (Reported) Last Action: Continued Cholecalciferol (Vitamin D3) 125 Mcg Tablet, 125 MCG PO DAILY, (Reported) Last Action: Continued Dexlansoprazole 60 Mg bp, 60 MG PO DAILY, (Reported) Last Action: Converted Docusate Sodium 100 Mg Tablet, 100 MG PO 2-3 TIMES DAILY, (Reported) Last Action: Converted Ezetimibe 10 Mg Tablet, 10 MG PO HS, (Reported) Last Action: Continued Insulin Aspart 100 Unit/1 Ml Susp, UNIT SQ AC PRN for PER PUMP, (Reported) Last Action: Reviewed Krill/Om-3/Dha/Epa/Phospho/Ast 1 Each Capsule, 1 EACH PO DAILY, (Reported) Last Action: Converted Losartan Potassium 25 Mg Tablet, 25 MG PO DAILY PRN for BLOOD PRESSURE, (Reported) Last Action: Continued Magnesium Oxide 400 Mg Tablet, 800 MG PO DAILY, (Reported) Last Action: Converted Mycophenolate Sodium 180 Mg Tablet.dr, 180 MG PO BID, (Reported) Last Action: Converted Nebivolol HCl 5 Mg Tablet, 5 MG PO DAILY, (Reported) Last Action: Continued Oxycodone HCl 10 Mg Tablet, 10 MG PO Q4H PRN for PAIN-SEVERE (8-10), (Reported) Last Action: Converted Prednisone 5 Mg Tablet, 5 MG PO DAILY, (Reported) Last Action: Continued Rosuvastatin Calcium 40 Mg Tablet, 40 MG PO HS, (Reported) Last Action: Converted Sennosides/Docusate Sodium 1 Each Tablet, 1 EACH PO DAILY PRN for CONSTIPATION- 6TH LINE, (Reported) Last Action: Continued Tacrolimus 1 Mg Capsule, 2 MG PO BID, (Reported) TAKES 2 (1MG) CAPS Last Action: Continued Patient Home Medication List Home Medication List Reviewed: Yes Past Jtihsnd-Mumzki-Cvetwr Hx Patient Social History Smoking Status: Never a Smoker Alcohol Use?: No Have you traveled recently?: No Surgeries History of Surgeries: Yes Surgeries: CABG, Joint Replacement (Hip), Kidney Transplant Respiratory History of Respiratory Disorde: No Cardiovascular History of Cardiac Disorders: Yes Cardiac Disorders: Coronary Artery Disease Neurological History of Neurological Disord: No Reproductive System : No Hx Reproductive Disorders: No Genitourinary History of Genitourinary Disor: No Gastrointestinal History of Gastrointestinal Di: No Musculoskeletal History of Musculoskeletal Dis: Yes Musculoskeletal Disorders: Chronic Back Pain Endocrine History of Endocrine Disorders: Yes Endocrine Disorders: Diabetes, 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) HEENT History of HEENT Disorders: No Cancer History of Cancer: No Psychosocial History of Psychiatric Problem: No Integumentary History of Skin or Integumenta: No Reviewed Nursing Assessment Reviewed/Agree w Nursing PMH: Yes Family Medical History Significant Family History: No Pertinent Family Hx Review of Systems-General Constitutional: fever, weakness EENTM: No blurred vision, No double vision Respiratory: No cough, No dyspnea on exertion Cardiovascular: No chest pain, No palpitations Gastrointestinal: abdominal pain (RUQ), nausea, vomiting Genitourinary: No decreased output, No discharge Musculoskeletal: No back pain, No joint pain Skin: No change in color, No change in hair/nails Psychiatric/Neurological: Denies Anxiety, Denies Depressed, Denies Emotional Problems All Other Systems Reviewed Negative Unless Noted: Yes (Negative excepted noted.) Physical Exam-General Problems Physical Exam Vital Signs Vital Signs - First Documented 01/13/21 01/13/21 06:49 07:03 Temp 37.9 Pulse 112 Resp 24 B/P (MAP) 134/100 (111) Pulse Ox 93 O2 Delivery Room Air O2 Flow Rate 2.00 Capillary Refill : Less Than 3 Seconds General Appearance: no apparent distress, obese HEENT: PERRL/EOMI, normal ENT inspection Neck: non-tender, supple Respiratory: chest non-tender, no respiratory distress, no accessory muscle use Cardiovascular: regular rate, rhythm, no JVD Gastrointestinal: soft; No distended, No guarding; tenderness (Right upper quadrant) Rectal: deferred Back: no CVA tenderness, no vertebral tenderness Extremities: non-tender, normal inspection Neurologic/Psychiatric: no motor/sensory deficits, alert, normal mood/affect, oriented x 3 Skin: normal color, warm/dry Lymphatic: no adenopathy Data Review Labs Laboratory Tests 01/13/21 16:30: White Blood Count 13.2H, Red Blood Count 4.73, Hemoglobin 12.2#, Hematocrit 40, Mean Corpuscular Volume 84, Mean Corpuscular Hemoglobin 26, Mean Corpuscular Hemoglobin Concent 31L, Red Cell Distribution Width 15.7H, Platelet Count 183, Mean Platelet Volume 9.8, Immature Granulocyte % (Auto) 1, Neutrophils (%) (Auto) 84H, Lymphocytes (%) (Auto) 6L, Monocytes (%) (Auto) 8, Eosinophils (%) (Auto) 1, Basophils (%) (Auto) 0, Neutrophils # (Auto) 11.1H, Lymphocytes # (Auto) 0.8L, Monocytes # (Auto) 1.1H, Eosinophils # (Auto) 0.1, Basophils # (Auto) 0.0, Immature Granulocyte # (Auto) 0.1, Sodium Level 141, Potassium Level 3.9, Chloride Level 106, Carbon Dioxide Level 24, Anion Gap 11, Blood Urea Nitrogen 11, Creatinine 0.76, Estimat Glomerular Filtration Rate 74, BUN/Creatinine Ratio 14, Glucose Level 129H, Lactic Acid Level 1.85, Calcium Level 8.6, Corrected Calcium 9.4, Total Bilirubin 2.6H, Aspartate Amino Transf (AST/SGOT) 265H, Alanine Aminotransferase (ALT/SGPT) 292H, Alkaline Phosphatase 189H, C-Reactive Protein High Sensitivity 7.09H, Total Protein 5.3L, Albumin 3.0L, Procalcitonin 2.64H 01/14/21 01:30: Activated Partial Thromboplast Time 29 01/14/21 04:20: White Blood Count 13.6H, Red Blood Count 5.18H, Hemoglobin 13.3, Hematocrit 45, Mean Corpuscular Volume 86, Mean Corpuscular Hemoglobin 26, Mean Corpuscular Hemoglobin Concent 30L, Red Cell Distribution Width 16.2H, Platelet Count 182, Mean Platelet Volume 9.8, Immature Granulocyte % (Auto) 1, Neutrophils (%) (Auto) 83H, Lymphocytes (%) (Auto) 8L, Monocytes (%) (Auto) 8, Eosinophils (%) (Auto) 1, Basophils (%) (Auto) 0, Neutrophils # (Auto) 11.3H, Lymphocytes # (Auto) 1.1, Monocytes # (Auto) 1.1H, Eosinophils # (Auto) 0.1, Basophils # (Auto) 0.0, Immature Granulocyte # (Auto) 0.1, Sodium Level 141, Potassium Level 4.1, Chloride Level 106, Carbon Dioxide Level 23, Anion Gap 12, Blood Urea Nitrogen 9, Creatinine 0.80, Estimat Glomerular Filtration Rate 70, BUN/Creatinine Ratio 11, Glucose Level 168H, Calcium Level 9.3, Corrected Calcium 9.9, Total Bilirubin 3.1H, Aspartate Amino Transf (AST/SGOT) 121H, Alanine Aminotransferase (ALT/SGPT) 228H, Alkaline Phosphatase 181H, C-Reactive Protein High Sensitivity 12.25H, Total Protein 6.0L, Albumin 3.3, Procalcitonin 1.79H, Triglycerides Level 89, Cholesterol Level 127, LDL Cholesterol Direct 55, VLDL Cholesterol 18, HDL Cholesterol 39L 01/14/21 07:47: Activated Partial Thromboplast Time 186*H Microbiology 01/13/21 Blood Culture - Preliminary, Resulted Gram Negative Tito Assessment/Plan Assessment/Plan Assessment/Plan Right upper quadrant abdominal pain Nausea and vomiting History of renal transplant Transaminitis with hyperbilirubinemia Patient with no clear source of patient's symptoms. Patient gallbladder not adequately visualized. Patient could have cholecystitis or choledocholithiasis. We will get HIDA scan to further evaluate which this is scheduled for this morning. If cystic duct is patent then not acute cholecystitis. This will also evaluate whether or not the patient has obstruction in the common bile duct. If so will need ERCP. MASSIEL BOBO DO Jan 14, 2021 15:26
[2021-01-14] MEDS ORDERED: predniSONE 5 MG TAB PO ONE (16:00)
[2021-01-14] MEDS: DOCUSATE SODIUM 100 MG (COLACE) CAP PO SCH (20:46)
[2021-01-14] MEDS ORDERED: ROSUVASTATIN 20 MG (CRESTOR) TABLET PO SCH (21:00)
[2021-01-14] MEDS ORDERED: eZETimibe 10 MG (ZETIA) TABLET PO SCH (21:00)
[2021-01-14] MEDS ORDERED: TACROLIMUS 1 MG (PROGRAF) CAP NON-FORMULARY PO SCH (21:00)
[2021-01-14] MEDS ORDERED: MYCOPHENOLATE SODIUM 180 MG PO SCH (21:00)
[2021-01-15] VITALS (17 sets, daily range): BP systolic 96–155; BP diastolic 39–100
[2021-01-15] MEDS: HEParin DRIP 25000 UNIT/500ML 500 ML IV SCH (01:06)
[2021-01-15] MEDS ORDERED: FUROSEMIDE 40 MG/4 ML INJ (LASIX) IVP ONE (01:45)
[2021-01-15] MEDS ORDERED: RT-ALBUTEROL SULF 2.5 MG/3 ML PRE-MIX VIAL INH PRN (02:15)
[2021-01-15 04:51] LABS: HEMATOCRIT 42 % (35-52); HEMOGLOBIN 12.5 g/dL (11.5-16.0); MEAN CORPUSCULAR HEMOGLOBIN 26 pg (25-34); MEAN CORPUSCULAR HGB CONC 30 g/dL (32-36); MEAN CORPUSCULAR VOLUME 88 fL (80-99); MEAN PLATELET VOLUME 9.9 fL (9.0-12.2); PLATELET COUNT 184 10^3/uL (130-400); WHITE BLOOD COUNT 10.3 10^3/uL (4.3-11.0)
[2021-01-15] MEDS: MEROPENEM 500 MG in WATER (STERILE) FOR INJECTION 10 ML IV SCH ×3 (04:56→23:04)
[2021-01-15 05:00] LABS: ALBUMIN 3.2 GM/DL (3.2-4.5); POTASSIUM 4.1 MMOL/L (3.6-5.0)
[2021-01-15 05:01] LABS: CALCIUM 8.7 MG/DL (8.5-10.1)
[2021-01-15 05:04] LABS: BILIRUBIN,TOTAL 1.1 MG/DL (0.1-1.0)
[2021-01-15 05:06] LABS: CREATININE SERUM 0.81 MG/DL (0.60-1.30)
[2021-01-15] MEDS: VANCOMYCIN 1250 MG/NS 250 ML IVPB IV SCH ×4 (06:17→20:14)
[2021-01-15] MEDS: inSUlin ASPART (NovoLOG) 1 UNIT/0.01 ML (CHARGE PER UNIT) SC SCH ×4 (07:10→20:13)
[2021-01-15] MEDS ORDERED: LORazepam 0.5 MG (ATIVAN) TABLET PO ONE (07:15)
[2021-01-15] MEDS ORDERED: MAGNESIUM OXIDE (MAG-OX)400 MG TAB PO SCH (08:00)
[2021-01-15] MEDS: DOCUSATE SODIUM 100 MG (COLACE) CAP PO SCH ×3 (08:45→20:17)
[2021-01-15] MEDS: predniSONE 5 MG TAB PO SCH (08:45)
[2021-01-15] MEDS ORDERED: PANTOPRAZOLE 40 MG (PROTONIX) TAB PO SCH (09:00)
[2021-01-15] MEDS ORDERED: VITAMIN D3 125 MCG (5,000 UNITS) CAPSULE PO SCH (09:00)
[2021-01-15] MEDS ORDERED: OMEGA 3 (FISH OIL) 1000 MG CAP PO SCH (09:00)
[2021-01-15] MEDS ORDERED: ASPIRIN E.C. 81 MG (ECOTRIN) TAB PO SCH (09:00)
[2021-01-15 09:55] LABS: BILIRUBIN,URINE 1+ (NEGATIVE); CLARITY,URINE CLOUDY; COLOR,URINE YELLOW; GLUCOSE, URINE (UA) NEGATIVE (NEGATIVE); KETONES,URINE NEGATIVE (NEGATIVE); LEUKOCYTE ESTERASE ,URINE NEGATIVE (NEGATIVE); NITRITE,URINE NEGATIVE (NEGATIVE); PROTEIN,URINE TRACE (NEGATIVE)
[2021-01-15 10:19] LABS: AMORPHOUS SEDIMENT,UR LARGE AMOR URATES /LPF; BACTERIA,URINE NEGATIVE /HPF; WBC,URINE RARE /HPF
[2021-01-15 11:00] LABS: ABG BASE EXCESS 1.3 MMOL/L (-2.5-2.5); ABG OXYGEN SATURATION 97 % (94-100); ABG PCO2 65 MMHG (35-45); ABG PO2 87 MMHG (79-93); ABG TCO2 29.9 MMOL/L (21.0-31.0); PATIENT TEMP 36.8; VENTILATOR NO
[2021-01-15 11:06] LABS: ABG PH 7.25 (7.37-7.43)
--- NOTE | 2021-01-15 11:11 | Progress Note - Hospitalist ---
Subjective HPI/CC On Admission Date Seen by Provider: Jan 15, 2021 Time Seen by Provider: 08:00 Pt is a 75yoCF with a PMH of renal transplant who presented to the ER due to 1 week of nausea and confusion. She was unable to provide much history in the ER due to AMS but was found to be febrile with a leukocytosis and transaminitis. D ue to her history of a renal transplant attempts and severe sepsis in the ER with AMS attempts were made at transfer to her transplant team then. Due to COVID surgery regionally the ER called roughly 20 places and they were unable to find placement for her. She was admitted here for further care. CT was doen and showed her renal transplant and uncomplicated diverticulosis. Abd usg was unrevealing as well. HIDA scan was ordered for this morning. She reports feeling much better today and really her only issue is irritation from the catheter. We discussed plan for HIDA scan and possible need for surgery or transfer depending on the findings. Subjective/Events-last exam Pt is more confused today. She told me she believes we are drugging her. Her is at bedside and states this is totally different from normal. Focused Exam Lactate Level Objective Exam Vital Signs Vital Signs Date Time Temp Pulse Resp B/P (MAP) Pulse Ox O2 Delivery O2 Flow Rate FiO2 01/16/21 11:23 01/16/21 11:00 87 26 94 NIV Bilevel 25.00 01/16/21 09:15 25 01/16/21 08:13 37.0 Capillary Refill : Less Than 3 Seconds General Appearance: No Apparent Distress, Obese Respiratory: Lungs Clear, No Accessory Muscle Use, Other (tachypnea) Cardiovascular: Regular Rate, Rhythm, No Murmur Gastrointestinal: Normal Bowel Sounds, Soft Neurologic/Psychiatric: Alert, Oriented x3 Results/Procedures Lab Laboratory Tests 01/16/21 04:03 Patient resulted labs reviewed. Imaging: Reviewed Imaging Report Assessment/Plan Assessment and Plan Assess & Plan/Chief Complaint Severe sepsis Immunocompromised state from renal transplant transaminitis Acute hypoxic respiratory failure with hypercapnia Unable to visualization gallblader on usg HIDA scan reveals biliary tree obstruction- I attempted transfer through [facility] at roughly 15 facilities in the region today and yesterday ([facility], [facility], [facility], [facility] in [facility], [facility], [facility], [facility], [facility], [facility], [facility], [facility] in [place], [facility]) and essentially everyone was at capacity and unable to accept. Family did decline bed in [place] ([facility]) that was available yesterday to hopefully get to today. I have called and spoke with the transfer team at again today and am awaiting call back Liver enzymes trending down and hepatitis panel negative Continue IV abx Lactic acidosis resolved Surgery consulted appreciate recs Continue heparin gtt for elevated d-dimer Continue immune suppressants Clinically appears much worse today, transfer to ICU for BiPAP HTN BP well controlled, trend DVT ppx: Heparin gtt for now until VQ scan 1415 update: I have updated [facility] regarding patient status and need for BiPAP. They had an accepting physician but no bed availability. Transfer RN will contact accepting physician and see if they are still ok accepting on BiPAP. If not she will discuss with the medical oncologist and see if there is bed availability. 1600 update: [facility] returned call and informed me that they do not have bed availability now for pt. Advised to call back tomorrow. Informed family who then requested transfer to [place] where bed was available yesterday. I called [facility] in [place] and they no longer have a bed available. Updated RN to inform family. 1744 update: Family has a friend who is a physician in [place], [place] with needed specialists. Both Dr Quiroz and I spoke with Dr Brown there. He is willing to admit patient but cannot take tonight due to bed availability as stated above. Anticipates bed tomorrow. Requests call in the morning and repeat covid swab. Diagnosis/Problems Diagnosis/Problems (1) Severe sepsis (2) Renal transplant, status post (3) Acute hepatitis Status: Acute (4) Elevated d-dimer Status: Acute (5) Hypoxia Status: Acute NATALIIA BRADLEY MD Jan 15, 2021 11:11
[2021-01-15] MEDS ORDERED: PATIENT MAY USE OWN MEDS, ALL MC SCH (11:15)
--- NOTE | 2021-01-15 11:30 | Tele-ICU Consult ---
History of Present Illness History of Present Illness Date Seen by Provider: Jan 15, 2021 Time Seen by Provider: 11:25 Date of Admission Allergies and Home Medications Allergies Coded Allergies: Cephalosporins (Verified Allergy, Mild, rash, 01/13/21) adhesive tape (Verified Allergy, Mild, rash, 01/13/21) Penicillins (Verified Allergy, Unknown, 01/13/21) iodine (Verified Allergy, Unknown, 01/13/21) latex (Verified Allergy, Unknown, 01/13/21) Uncoded Allergies: IV Contrast (Allergy, Unknown, 01/13/21) renal transplant pt Home Medications Aspirin 81 Mg Tablet.dr, 81 MG PO DAILY, (Reported) Cholecalciferol (Vitamin D3) 125 Mcg Tablet, 125 MCG PO DAILY, (Reported) Dexlansoprazole 60 Mg Cap.bp, 60 MG PO DAILY, (Reported) Docusate Sodium 100 Mg Tablet, 100 MG PO 2-3 TIMES DAILY, (Reported) Ezetimibe 10 Mg Tablet, 10 MG PO HS, (Reported) Insulin Aspart 100 Unit/1 Ml Susp, UNIT SQ AC PRN for PER PUMP, (Reported) Krill/Om-3/Dha/Epa/Phospho/Ast 1 Each Capsule, 1 EACH PO DAILY, (Reported) Losartan Potassium 25 Mg Tablet, 25 MG PO DAILY PRN for BLOOD PRESSURE, (Reported) Magnesium Oxide 400 Mg Tablet, 800 MG PO DAILY, (Reported) Mycophenolate Sodium 180 Mg Tablet.dr, 180 MG PO BID, (Reported) Nebivolol HCl 5 Mg Tablet, 5 MG PO DAILY, (Reported) Oxycodone HCl 10 Mg Tablet, 10 MG PO Q4H PRN for PAIN-SEVERE (8-10), (Reported) Prednisone 5 Mg Tablet, 5 MG PO DAILY, (Reported) Rosuvastatin Calcium 40 Mg Tablet, 40 MG PO HS, (Reported) Sennosides/Docusate Sodium 1 Each Tablet, 1 EACH PO DAILY PRN for CONSTIPATION- 6TH LINE, (Reported) Tacrolimus 1 Mg Capsule, 2 MG PO BID, (Reported) TAKES 2 (1MG) CAPS Past Medical/Social/Family Hx Patient Social History Tobacco Use?: No Smoking Status: Never a Smoker Use of E-Cig and/or Vaping dev: No Substance use?: No Alcohol Use?: No Pt stated abuse/neglect: No Immunizations Up To Date Influenza Vaccine Up-to-Date: Yes; Up-to-Date Current Status status: No status: No Advance Directives: No Communicates: Verbally Primary Language: Kuwaiti Preferred Spoken Language: Kuwaiti Is interpretation needed?: No Implanted or Applied Medical D: Insulin pump Review of Systems Constitutional: see HPI Sepsis Event Evaluation Height, Weight, BMI Height: '" Weight: lbs. oz. kg; 31.41 BMI Method: Exam Exam Patient acknowledged, consented, and participated in this virtual visit which was conducted using real time audio/video Vital Signs Date Time Temp Pulse Resp B/P (MAP) Pulse Ox O2 Delivery O2 Flow Rate FiO2 01/15/21 08:00 97 Nasal Cannula 3.00 01/15/21 07:15 36.3 86 22 125/72 (89) 97 Nasal Cannula 3.00 01/15/21 03:40 36.4 92 28 121/81 (94) 94 Nasal Cannula 3.00 01/15/21 02:04 37.9 112 93 21 01/15/21 00:25 36.6 89 24 121/58 (79) 93 Nasal Cannula 3.00 01/14/21 20:00 Nasal Cannula 3.00 01/14/21 20:00 36.8 89 22 147/72 (97) 95 Nasal Cannula 3.00 01/14/21 16:15 37.2 97 20 140/69 (92) 96 Nasal Cannula 3.00 01/14/21 15:26 Nasal Cannula 3.00 01/14/21 12:20 36.7 94 22 130/69 (89) 97 Nasal Cannula 3.00 I & O 01/15/21 07:00 Intake Total 450 ml Output Total 1100 ml Balance -650 ml Height & Weight Height: '" Weight: lbs. oz. kg; 31.41 BMI Method: General Appearance: No Apparent Distress, Mild Distress, Obese HEENT: PERRL/EOMI, Moist Mucous Membranes; No Scleral Icterus (L), No Scleral Icterus (R) Neck: Normal Inspection, Supple Respiratory: Lungs Clear, No Accessory Muscle Use, Other (tachypnea) Cardiovascular: Regular Rate, Rhythm, No Murmur Capillary Refill: Less Than 3 Seconds Gastrointestinal: soft; No distended, No guarding; tenderness (Right upper quadrant) Extremity: Normal Capillary Refill, No Calf Tenderness, No Pedal Edema Neurologic/Psychiatric: Alert, Oriented x3 Skin: Normal Color, Warm/Dry Results Lab Laboratory Tests 01/13/21 16:30 01/14/21 04:20 01/15/21 04:39 Assessment/Plan Assessment/Plan (Tele-ICU Physician , consultation) Available chart/ vitals / labs / Images reviewed H&P is from ER notes Patient's information available about PMH, Shx, Fhx allergy reviewed in EMR. ROS as per chart and RN report Patient admitted 01/13- PMH of renal transplant who presented to the ER due to 1 week of nausea and confusion , febrile with a leukocytosis and transaminitis 01/14 - yo ICU letargic, dyspneic in ICU, hemodynamically stable , RR 28 , arowsable , labred breathing Video assessment done using teleICU camera, rest of exam as per RN Discussed with RN. Consultants: Sx A/P Acute resp failure, resp acidosis - ? sedated with pain meds, ? br - spas, ? VO - received 3l IVF since admission. 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 Plans for transfer for ERCP -Liver enzymes trending down and hepatitis panel negative - IV abx - Sx consulted Elevated D dimer -heparin gtt was initiated on admission- VQ ordered ,not done yet renal transplant - tacrolimus + prednisoone 5 Lines : peripf (Central Line Necessity Reviewed) Sotomayor: + OG: Nutrition: npo Analgesia: will hold pain med s Anxiety/ delirium VTE Prophylaxis: hep gtt Stress Ulcer Prophylaxis: na Glycemic Control: Plans in collaboration with bedside consultants and IM MDs. Discussed with RN to reach out if any questions or concerns A total of 32 minutes of critical care time was devoted to this patient today, required to treat and/or prevent further deterioration of critical care condition ( as above ) . JORDI ALEXANDER MD Jan 15, 2021 11:29
--- NOTE | 2021-01-15 11:40 | Progress Note - Surgery ---
Subjective Date Seen by a Provider: Jan 15, 2021 Time Seen by a Provider: 11:39 Focused Exam Lactate Level 01/13/21 12:34: Lactic Acid Level 2.01*H 01/13/21 15:16: Lactic Acid Level 2.17*H 01/13/21 16:30: Lactic Acid Level 1.85 Objective Exam Vital Signs Date Time Temp Pulse Resp B/P (MAP) Pulse Ox O2 Delivery O2 Flow Rate FiO2 01/15/21 08:00 97 Nasal Cannula 3.00 01/15/21 07:15 36.3 86 22 125/72 (89) 97 Nasal Cannula 3.00 01/15/21 03:40 36.4 92 28 121/81 (94) 94 Nasal Cannula 3.00 01/15/21 02:04 37.9 112 93 21 01/15/21 00:25 36.6 89 24 121/58 (79) 93 Nasal Cannula 3.00 01/14/21 20:00 Nasal Cannula 3.00 01/14/21 20:00 36.8 89 22 147/72 (97) 95 Nasal Cannula 3.00 01/14/21 16:15 37.2 97 20 140/69 (92) 96 Nasal Cannula 3.00 01/14/21 15:26 Nasal Cannula 3.00 01/14/21 12:20 36.7 94 22 130/69 (89) 97 Nasal Cannula 3.00 I & O 01/15/21 07:00 Intake Total 450 ml Output Total 1100 ml Balance -650 ml Capillary Refill : Less Than 3 Seconds General Appearance: No Apparent Distress, Obese HEENT: PERRL/EOMI, Moist Mucous Membranes; No Scleral Icterus (L), No Scleral Icterus (R) Neck: Normal Inspection, Supple Respiratory: Lungs Clear, No Accessory Muscle Use, Other (tachypnea) Cardiovascular: Regular Rate, Rhythm, No Murmur Gastrointestinal: soft; No distended, No guarding; tenderness (Right upper quadrant) Extremity: Normal Capillary Refill, No Calf Tenderness, No Pedal Edema Neurologic/Psychiatric: Alert, Oriented x3 Skin: Normal Color, Warm/Dry Results Lab Laboratory Tests 01/14/21 15:23: Activated Partial Thromboplast Time 65H 01/14/21 21:35: Activated Partial Thromboplast Time 95H 01/15/21 04:39: Activated Partial Thromboplast Time 86H, White Blood Count 10.3, Red Blood Count 4.79, Hemoglobin 12.5, Hematocrit 42, Mean Corpuscular Volume 88, Mean Corpuscular Hemoglobin 26, Mean Corpuscular Hemoglobin Concent 30L, Red Cell Distribution Width 16.2H, Platelet Count 184, Mean Platelet Volume 9.9, Sodium L evel 141, Potassium Level 4.1, Chloride Level 105, Carbon Dioxide Level 24, Anion Gap 12, Blood Urea Nitrogen 12, Creatinine 0.81, Estimat Glomerular Filtration Rate 69, BUN/Creatinine Ratio 15, Glucose Level 124H, Calcium Level 8.7, Corrected Calcium 9.3, Total Bilirubin 1.1H, Aspartate Amino Transf (AST/SGOT) 27, Alanine Aminotransferase (ALT/SGPT) 130H, Alkaline Phosphatase 134, Total Protein 6.0L, Albumin 3.2 01/15/21 09:45: Urine Color YELLOW, Urine Clarity CLOUDY, Urine pH 6.0, Urine Specific [place] >=1.030, Urine Protein TRACEH, Urine Glucose (UA) NEGATIVE, Urine Ketones NEGATIVE, Urine Nitrite NEGATIVE, Urine Bilirubin 1+H, Urine Urobilinogen 0.2, Urine Leukocyte Esterase NEGATIVE, Urine RBC (Auto) TRACE-I, Urine RBC 2-5H, Urine WBC RARE, Urine Crystals PRESENTH, Urine Amorphous Sediment LARGE MICHOACANO URATESH, Urine Bacteria NEGATIVE, Urine Casts NONE, Urine Mucus NEGATIVE, Urine Culture Indicated NO 01/15/21 10:55: Blood Gas Puncture Site LEFT RADIAL, Blood Gas Patient Temperature 36.8, Arterial Blood pH 7.25*L, Arterial Blood Partial Pressure CO2 65H, Arterial Blood Partial Pressure O2 87, Arterial Blood HCO3 28H, Arterial Blood Total CO2 29.9, Arterial Blood Oxygen Saturation 97, Arterial Blood Base Excess 1.3, Chevy Test UNKNOWN, Blood Gas Ventilator Setting NO, Blood Gas Inspired Oxygen UNKNOWN Microbiology 01/13/21 Blood Culture - Preliminary, Resulted Escherichia coli 01/13/21 Urine Culture - Final, Complete NO GROWTH Assessment/Plan Assessment/Plan Assessment/Plan Right upper quadrant abdominal pain Nausea and vomiting History of renal transplant Transaminitis with hyperbilirubinemia Patient with no clear source of patient's symptoms. Patient gallbladder not adequately visualized. Patient could have cholecystitis or choledocholithiasis. We will get HIDA scan to further evaluate which this is scheduled for this morning. If cystic duct is patent then not acute cholecystitis. This will also evaluate whether or not the patient has obstruction in the common bile duct. If so will need ERCP. MASSIEL BOBO DO Jan 15, 2021 11:40
[2021-01-15] MEDS ORDERED: TACROLIMUS 1 MG (PROGRAF) CAP NON-FORMULARY PO SCH (12:00)
[2021-01-15] MEDS ORDERED: MYCOPHENOLATE SODIUM 180 MG PO SCH (12:00)
--- NOTE | 2021-01-15 12:09 | Diagnostic Imaging Report ---
INDICATION: Respiratory failure. TIME OF EXAM: 11:49 AM CORRELATION is made with prior chest from 01/13/2021. Changes of median sternotomy are noted. The heart size is stable. The right hemidiaphragm is chronically elevated. There appears to be subsegmental atelectasis in both bases. Mid and upper lung bonner are clear. No effusion or pneumothorax is identified. IMPRESSION: Chronically elevated right hemidiaphragm with bibasilar subsegmental atelectasis. Dictated by: Dictated on workstation # [id number]
[2021-01-15 13:13] LABS: ABG BASE EXCESS 1.3 MMOL/L (-2.5-2.5); ABG OXYGEN SATURATION 99 % (94-100); ABG PCO2 50 MMHG (35-45); ABG PO2 117 MMHG (79-93); ABG TCO2 28.1 MMOL/L (21.0-31.0)
[2021-01-15 13:23] LABS: ABG PH 7.34 (7.37-7.43); ALLENS TEST POSITIVE; INSPIRED O2 40; PATIENT TEMP 36.6; VENTILATOR NO
--- NOTE | 2021-01-15 15:51 | Progress Note - Surgery ---
Subjective Date Seen by a Provider: Jan 15, 2021 Time Seen by a Provider: 11:11 Subjective/Events-last exam Patient not feeling well. Increasing labored breathing. Patient with worsening mentation. Some air hunger. at bedside. Focused Exam Lactate Level 01/13/21 12:34: Lactic Acid Level 2.01*H 01/13/21 15:16: Lactic Acid Level 2.17*H 01/13/21 16:30: Lactic Acid Level 1.85 Objective Exam Vital Signs Date Time Temp Pulse Resp B/P (MAP) Pulse Ox O2 Delivery O2 Flow Rate FiO2 01/15/21 13:25 100 NIV Bilevel 40 01/15/21 13:23 80 27 100 40.00 01/15/21 12:35 80 01/15/21 11:44 77 29 97 40.00 01/15/21 11:39 36.1 01/15/21 11:00 81 24 145/70 (95) 98 Nasal Cannula 10.00 01/15/21 10:54 74 01/15/21 08:00 97 Nasal Cannula 3.00 01/15/21 07:15 36.3 86 22 125/72 (89) 97 Nasal Cannula 3.00 01/15/21 03:40 36.4 92 28 121/81 (94) 94 Nasal Cannula 3.00 01/15/21 02:04 37.9 112 93 21 01/15/21 00:25 36.6 89 24 121/58 (79) 93 Nasal Cannula 3.00 01/14/21 20:00 Nasal Cannula 3.00 01/14/21 20:00 36.8 89 22 147/72 (97) 95 Nasal Cannula 3.00 01/14/21 16:15 37.2 97 20 140/69 (92) 96 Nasal Cannula 3.00 I & O 01/15/21 07:00 Intake Total 450 ml Output Total 1100 ml Balance -650 ml Capillary Refill : Less Than 3 Seconds General Appearance: Anxious, Obese HEENT: PERRL/EOMI, Moist Mucous Membranes; No Scleral Icterus (L), No Scleral Icterus (R) Neck: Normal Inspection, Supple Respiratory: Chest Non Tender, No Accessory Muscle Use, Other (tachypnea) Cardiovascular: Regular Rate, Rhythm, No JVD Gastrointestinal: soft; No distended, No guarding; tenderness (Right upper quadrant) Extremity: Normal Capillary Refill, No Calf Tenderness, No Pedal Edema Neurologic/Psychiatric: Alert, Oriented x3 Skin: Normal Color, Warm/Dry Results Lab Laboratory Tests 01/14/21 21:35: Activated Partial Thromboplast Time 95H 01/15/21 04:39: Activated Partial Thromboplast Time 86H, White Blood Count 10.3, Red Blood Count 4.79, Hemoglobin 12.5, Hematocrit 42, Mean Corpuscular Volume 88, Mean Corpuscular Hemoglobin 26, Mean Corpuscular Hemoglobin Concent 30L, Red Cell Distribution Width 16.2H, Platelet Count 184, Mean Platelet Volume 9.9, Sodium Level 141, Potassium Level 4.1, Chloride Level 105, Carbon Dioxide Level 24, Anion Gap 12, Blood Urea Nitrogen 12, Creatinine 0.81, Estimat Glomerular Filtration Rate 69, BUN/Creatinine Ratio 15, Glucose Level 124H, Calcium Level 8 .7, Corrected Calcium 9.3, Total Bilirubin 1.1H, Aspartate Amino Transf (AST/SGOT) 27, Alanine Aminotransferase (ALT/SGPT) 130H, Alkaline Phosphatase 134, Total Protein 6.0L, Albumin 3.2 01/15/21 09:45: Urine Color YELLOW, Urine Clarity CLOUDY, Urine pH 6.0, Urine Specific [place] >=1.030, Urine Protein TRACEH, Urine Glucose (UA) NEGATIVE, Urine Ketones NEGATIVE, Urine Nitrite NEGATIVE, Urine Bilirubin 1+H, Urine Urobilinogen 0.2, Urine Leukocyte Esterase NEGATIVE, Urine RBC (Auto) TRACE-I, Urine RBC 2-5H, Urine WBC RARE, Urine Crystals PRESENTH, Urine Amorphous Sediment LARGE MICHOACANO URATESH, Urine Bacteria NEGATIVE, Urine Casts NONE, Urine Mucus NEGATIVE, Urine Culture Indicated NO 01/15/21 10:55: Blood Gas Puncture Site LEFT RADIAL, Blood Gas Patient Temperature 36.8, Arterial Blood pH 7.25*L, Arterial Blood Partial Pressure CO2 65H, Arterial Blood Partial Pressure O2 87, Arterial Blood HCO3 28H, Arterial Blood Total CO2 29.9, Arterial Blood Oxygen Saturation 97, Arterial Blood Base Excess 1.3, Chevy Test UNKNOWN, Blood Gas Ventilator Setting NO, Blood Gas Inspired Oxygen UNKNOWN 01/15/21 13:00: Blood Gas Puncture Site RIGHT RADIAL, Blood Gas Patient Temperature 36.6, Arterial Blood pH 7.34*L, Arterial Blood Partial Pressure CO2 50H, Arterial Blood Partial Pressure O2 117H, Arterial Blood HCO3 27, Arterial Blood Total CO2 28.1, Arterial Blood Oxygen Saturation 99, Arterial Blood Base Excess 1.3, Chevy Test POSITIVE, Blood Gas Ventilator Setting NO, Blood Gas Inspired Oxygen 40 Microbiology 01/13/21 Blood Culture - Preliminary, Resulted Escherichia coli 01/13/21 Urine Culture - Final, Complete NO GROWTH Assessment/Plan Assessment/Plan Assessment/Plan Right upper quadrant abdominal pain Nausea and vomiting History of renal transplant Transaminitis with hyperbilirubinemia Patient with no clear source of patient's symptoms. Patient gallbladder not adequately visualized. HIDA scan done consistent with biliary obstruction. Gallbladder visualized. Need ERCP. Dr. Sanchez working on transfer to tertiary center.. MASSIEL BOBO DO Jan 15, 2021 15:51
[2021-01-15] MEDS ORDERED: DEXTROSE 50% 50 ML (IMS) SYR ONE (17:26)
[2021-01-15] MEDS ORDERED: DEXTROSE 50% 50 ML (IMS) SYR IV ONE (17:30)
[2021-01-15] MEDS: [UNRECOGNIZED DRUG - REMARK] PO SCH ×2 (17:50→20:14)
[2021-01-15] MEDS: TACROLIMUS 1 MG (PROGRAF) CAP NON-FORM PO SCH ×2 (17:50→20:15)
[2021-01-15 19:16] LABS: ABG BASE EXCESS 3.1 MMOL/L (-2.5-2.5); ABG OXYGEN SATURATION 99 % (94-100); ABG PCO2 45 MMHG (35-45); ABG PO2 113 MMHG (79-93); ABG TCO2 29.1 MMOL/L (21.0-31.0)
[2021-01-15 19:17] LABS: ALLENS TEST YES-POS; INSPIRED O2 40% BIPAP
[2021-01-15 19:18] LABS: PATIENT TEMP 36.2; VENTILATOR NO
[2021-01-15] MEDS: morphine INJ 4 MG/ML 1 ML (VIAL/SYRINGE) IV PRN (20:14)
--- NOTE | 2021-01-15 21:37 | Physician Query Clarification ---
Physician Query-General Query to Physician: The medical record reflects the following clinical scenario: The patient, in the setting of History/Risk factors, Severe sepsis, Hepatitis, Immunocompromised, No home 02 Clinical Findings 02 sat day of admission 93% on 2L (P/F 69/.28 or 246) has required 10L with sats 95% (PF 79/.95 or 83) with RR 24 (admission) to 31 and accessory Muscle use. Treatment Supplemental 02, IV Vanco/Meropenem, Albuterol Question: Do you agree with the impression of Acute Respiratory failure with hypoxia per Minda Reddy? 1. Yes; will document Acute Hypoxic Respiratory Failure, present on admission in the Progress Notes 2. No; will continue to document Hypoxia in the Progress Notes 3. Other; will document explanation of clinical findings 4. Clinically undetermined; no explanation for clinical findings Please clarify and document your clinical opinion in the Progress Notes and Discharge Summary including the definitive and/or presumptive diagnosis, (suspected or probable), related to the above clinical findings. Please include clinical findings supporting your diagnosis. In responding to this query, please exercise your independent professional judgment. The purpose of this communication is to more accurately reflect the complexity of your patients condition. The fact that a question is asked does not imply that any particular answer is desired or expected. Please remember a lack of response to the above will prompt a phone page by Jonathan LINDSEY/coding staff Thank you for timely response to this clarification. Yancy Condon Clinical Wind Field Manager [phone] [email or web address] PHYSICIAN RESPONSE: Based on the clinical findings in the record, please respond to the query above on this document as an addendum. Physician Response: Physician Response 1 If you have questions please contact: Dog Boarder: Ext: Thank you for your time and cooperation. Clinical Wind Field Manager/Dog Boarder This is a permanent part of the medical record YANCY CONDON Jan 15, 2021 21:37 NATALIIA BRADLEY MD Jan 16, 2021 19:46
[2021-01-16] VITALS (13 sets, daily range): BP systolic 123–177; BP diastolic 51–105
[2021-01-16] MEDS: HEParin DRIP 25000 UNIT/500ML 500 ML IV SCH (00:41)
[2021-01-16] MEDS: morphine INJ 4 MG/ML 1 ML (VIAL/SYRINGE) IV PRN ×2 (03:07→10:41)
[2021-01-16 04:24] LABS: BASOPHILS % (AUTO) 0 % (0-10); EOSINOPHILS # (AUTO) 0.1 10^3/uL (0.0-0.3); EOSINOPHILS % (AUTO) 2 % (0-10); HEMATOCRIT 37 % (35-52); LYMPHOCYTES % (AUTO) 15 % (12-44); MEAN CORPUSCULAR HEMOGLOBIN 26 pg (25-34); MEAN CORPUSCULAR HGB CONC 30 g/dL (32-36); MEAN CORPUSCULAR VOLUME 86 fL (80-99); MEAN PLATELET VOLUME 9.9 fL (9.0-12.2); MONOCYTES # (AUTO) 0.5 10^3/uL (0.0-1.0); MONOCYTES % (AUTO) 7 % (0-12); NEUTROPHILS % (AUTO) 74 % (42-75); PLATELET COUNT 170 10^3/uL (130-400); WHITE BLOOD COUNT 6.7 10^3/uL (4.3-11.0)
[2021-01-16 04:39] LABS: ALBUMIN 2.7 GM/DL (3.2-4.5)
[2021-01-16 04:40] LABS: POTASSIUM 3.7 MMOL/L (3.6-5.0)
[2021-01-16 04:41] LABS: CALCIUM 8.7 MG/DL (8.5-10.1)
[2021-01-16 04:42] LABS: TOTAL PROTEIN 5.1 GM/DL (6.4-8.2)
[2021-01-16 04:44] LABS: BILIRUBIN,TOTAL 0.8 MG/DL (0.1-1.0)
[2021-01-16 04:46] LABS: CREATININE SERUM 0.85 MG/DL (0.60-1.30)
[2021-01-16] MEDS: VANCOMYCIN 1250 MG/NS 250 ML IVPB IV SCH ×2 (05:55)
[2021-01-16] MEDS: inSUlin ASPART (NovoLOG) 1 UNIT/0.01 ML (CHARGE PER UNIT) SC SCH ×2 (05:56→10:25)
[2021-01-16] MEDS: MEROPENEM 500 MG in WATER (STERILE) FOR INJECTION 10 ML IV SCH (05:56)
--- NOTE | 2021-01-16 07:48 | Discharge Summary ---
Diagnosis/Chief Complaint Date of Admission Jan 13, 2021 at 19:40 Date of Discharge Discharge Date: Jan 16, 2021 Admission Diagnosis Severe sepsis Primary Care Columba Velázquez MD Discharge Diagnosis (1) Severe sepsis (2) Renal transplant, status post (3) Acute hepatitis Status: Acute (4) Elevated d-dimer Status: Acute (5) Hypoxia Status: Acute Discharge Summary Discharge Physical Exam Allergies: Coded Allergies: Cephalosporins (Verified Allergy, Mild, rash, 01/13/21) adhesive tape (Verified Allergy, Mild, rash, 01/13/21) Penicillins (Verified Allergy, Unknown, 01/13/21) iodine (Verified Allergy, Unknown, 01/13/21) latex (Verified Allergy, Unknown, 01/13/21) Uncoded Allergies: IV Contrast (Allergy, Unknown, 01/13/21) renal transplant pt Vitals & I&Os Vital Signs Date Time Temp Pulse Resp B/P (MAP) Pulse Ox O2 Delivery O2 Flow Rate FiO2 01/16/21 06:00 82 19 126/92 (103) 98 NIV Bilevel 25.00 01/16/21 03:08 36.8 01/15/21 20:00 40 Hospital Course Labs (last 24 hrs) Laboratory Tests 01/15/21 09:45: Urine Color YELLOW, Urine Clarity CLOUDY, Urine pH 6.0, Urine Specific [place] >=1.030, Urine Protein TRACEH, Urine Glucose (UA) NEGATIVE, Urine Ketones NEGATIVE, Urine Nitrite NEGATIVE, Urine Bilirubin 1+H, Urine Urobilinogen 0.2, Urine Leukocyte Esterase NEGATIVE, Urine RBC (Auto) TRACE-I, Urine RBC 2-5H, Urine WBC RARE, Urine Crystals PRESENTH, Urine Amorphous Sediment LARGE MICHOACANO URATESH, Urine Bacteria NEGATIVE, Urine Casts NONE, Urine Mucus NEGATIVE, Urine Culture Indicated NO 01/15/21 10:55: Blood Gas Puncture Site LEFT RADIAL, Blood Gas Patient Temperature 36.8, Arterial Blood pH 7.25*L, Arterial Blood Partial Pressure CO2 65H, Arterial Blood Partial Pressure O2 87, Arterial Blood HCO3 28H, Arterial Blood Total CO2 29.9, Arterial Blood Oxygen Saturation 97, Arterial Blood Base Excess 1.3, Chevy Test UNKNOWN, Blood Gas Ventilator Setting NO, Blood Gas Inspired Oxygen UNKNOWN 01/15/21 13:00: Blood Gas Puncture Site RIGHT RADIAL, Blood Gas Patient Temperature 36.6, Arterial Blood pH 7.34*L, Arterial Blood Partial Pressure CO2 50H, Arterial Blood Partial Pressure O2 117H, Arterial Blood HCO3 27, Arterial Blood Total CO2 28.1, Arterial Blood Oxygen Saturation 99, Arterial Blood Base Excess 1.3, Chevy Test POSITIVE, Blood Gas Ventilator Setting NO, Blood Gas Inspired Oxygen 40 01/15/21 17:27: Glucometer 52*L 01/15/21 19:05: Blood Gas Puncture Site L RAD, Blood Gas Patient Temperature 36.2, Arterial Blood pH 7.40, Arterial Blood Partial Pressure CO2 45, Arterial Blood Partial Pressure O2 113H, Arterial Blood HCO3 28H, Arterial Blood Total CO2 29.1, Arterial Blood Oxygen Saturation 99, Arterial Blood Base Excess 3.1H, Chevy Test YES-POS, Blood Gas Ventilator Setting NO, Blood Gas Inspired Oxygen 40% BIPAP 01/16/21 04:03: White Blood Count 6.7, Red Blood Count 4.31, Hemoglobin 11.0L, Hematocrit 37, Mean Corpuscular Volume 86, Mean Corpuscular Hemoglobin 26, Mean Corpuscular Hemoglobin Concent 30L, Red Cell Distribution Width 16.2H, Platelet Count 170, Mean Platelet Volume 9.9, Immature Granulocyte % (Auto) 1, Neutrophils (%) (Auto) 74, Lymphocytes (%) (Auto) 15, Monocytes (%) (Auto) 7, Eosinophils (%) (Auto) 2, Basophils (%) (Auto) 0, Neutrophils # (Auto) 5.0, Lymphocytes # (Auto) 1.0, Monocytes # (Auto) 0.5, Eosinophils # (Auto) 0.1, Basophils # (Auto) 0.0, Immature Granulocyte # (Auto) 0.1, Activated Partial Thromboplast Time 87H, Sodium Level 139, Potassium Level 3.7, Chloride Level 104, Carbon Dioxide Level 23, Anion Gap 12, Blood Urea Nitrogen 14, Creatinine 0.85, Estimat Glomerular Filtration Rate 65, BUN/Creatinine Ratio 16, Glucose Level 130H, Calcium Level 8.7, Corrected Calcium 9.7, Total Bilirubin 0.8, Aspartate Amino Transf (AST/SGOT) 14, Alanine Aminotransferase (ALT/SGPT) 68H, Alkaline Phosphatase 105, Total Protein 5.1L, Albumin 2.7L 01/16/21 05:55: SARS-CoV-2 RNA (RT-PCR) Not Detected Microbiology 01/13/21 Blood Culture - Preliminary, Resulted Escherichia coli 01/13/21 Urine Culture - Final, Complete NO GROWTH Patient resulted labs reviewed. Pending Labs Laboratory Tests 01/16/21 04:03: White Blood Count 6.7, Red Blood Count 4.31, Hemoglobin 11.0, Hematocrit 37, Mean Corpuscular Volume 86, Mean Corpuscular Hemoglobin 26, Mean Corpuscular Hemoglobin Concent 30, Red Cell Distribution Width 16.2, Platelet Count 170, Mean Platelet Volume 9.9, Immature Granulocyte % (Auto) 1, Neutrophils (%) (Auto) 74, Lymphocytes (%) (Auto) 15, Monocytes (%) (Auto) 7, Eosinophils (%) (Auto) 2, Basophils (%) (Auto) 0, Neutrophils # (Auto) 5.0, Lymphocytes # (Auto) 1.0, Monocytes # (Auto) 0.5, Eosinophils # (Auto) 0.1, Basophils # (Auto) 0.0, Immature Granulocyte # (Auto) 0.1, Activated Partial Thromboplast Time 87, Sodium Level 139, Potassium Level 3.7, Chloride Level 104, Carbon Dioxide Level 23, Anion Gap 12, Blood Urea Nitrogen 14, Creatinine 0.85, Estimat Glomerular Filtration Rate 65, BUN/Creatinine Ratio 16, Glucose Level 130, Calcium Level 8.7, Corrected Calcium 9.7, Total Bilirubin 0.8, Aspartate Amino Transf (AST/SGOT) 14, Alanine Aminotransferase (ALT/SGPT) 68, Alkaline Phosphatase 105, Total Protein 5.1, Albumin 2.7 01/16/21 05:55: SARS-CoV-2 RNA (RT-PCR) Not Detected Imaging: Reviewed Imaging Report Discharge Home Medications: Active Scripts Active Reported Docusate Sodium 100 Mg Tablet 100 Mg PO 2-3 TIMES DAILY Senna-S 8.6-50 mg Tablet (Sennosides/Docusate Sodium) 1 Each Tablet 1 Each PO DAILY PRN Bystolic (Nebivolol HCl) 5 Mg Tablet 5 Mg PO DAILY Magnesium (Magnesium Oxide) 400 Mg Tablet 800 Mg PO DAILY Losartan Potassium 25 Mg Tablet 25 Mg PO DAILY PRN Ezetimibe 10 Mg Tablet 10 Mg PO HS Rosuvastatin Calcium 40 Mg Tablet 40 Mg PO HS Prednisone 5 Mg Tablet 5 Mg PO DAILY Vitamin D3 (Cholecalciferol (Vitamin D3)) 125 Mcg Tablet 125 Mcg PO DAILY Novolog (Insulin Aspart) 100 Unit/1 Ml Susp Unit SQ AC PRN Aspirin EC (Aspirin) 81 Mg Tablet. 81 Mg PO DAILY Krill Oil 1,000 mg Softgel (Krill/Om-3/Dha/Epa/Phospho/Ast) 1 Each Capsule 1 Each PO DAILY Dexilant (Dexlansoprazole) 60 Mg Cap..bp 60 Mg PO DAILY Mycophenolic Acid (Mycophenolate Sodium) 180 Mg Tablet. 180 Mg PO BID Oxycodone HCl 10 Mg Tablet 10 Mg PO Q4H PRN Tacrolimus 1 Mg Capsule 2 Mg PO BID TAKES 2 (1MG) CAPS Instructions to patient/family Please see electronic discharge instructions given to patient. NATALIIA BRADLEY MD Jan 16, 2021 07:48
[2021-01-16] MEDS ORDERED: LIDOCAINE UROJET 2% GEL 10 ML PKG ONE (09:24)
[2021-01-16] MEDS: [UNRECOGNIZED DRUG - REMARK] PO SCH (09:30)
[2021-01-16] MEDS: predniSONE 5 MG TAB PO SCH (09:30)
[2021-01-16] MEDS: DOCUSATE SODIUM 100 MG (COLACE) CAP PO SCH ×2 (09:30→09:39)
[2021-01-16] MEDS: TACROLIMUS 1 MG (PROGRAF) CAP NON-FORM PO SCH (09:30)
[2021-01-16] MEDS ORDERED: LIDOCAINE UROJET 2% GEL 10 ML PKG TOP ONE (09:30)
--- NOTE | 2021-01-16 09:32 | Tele-ICU Progress Note ---
Subjective Date Seen by a Provider: Jan 16, 2021 Subjective/Events-last exam 75 F s/p renal transplant, admitted to MICU yesterday for sepsis, cholecystitis, On vancomycin and meropenem, BC growing E Coli Sepsis Event Evaluation Height, Weight, BMI Height: '" Weight: lbs. oz. kg; 31.41 BMI Method: Focused Exam Lactate Level 01/13/21 12:34: Lactic Acid Level 2.01*H 01/13/21 15:16: Lactic Acid Level 2.17*H 01/13/21 16:30: Lactic Acid Level 1.85 Exam Exam Patient acknowledged, consented, and participated in this virtual visit which was conducted using real time audio/video Vital Signs Date Time Temp Pulse Resp B/P (MAP) Pulse Ox O2 Delivery O2 Flow Rate FiO2 01/16/21 09:00 88 147/87 (107) 93 NIV Bilevel 25.00 01/16/21 08:21 80 20 96 25.00 01/16/21 08:13 37.0 01/16/21 08:00 87 22 144/87 (90) 96 NIV Bilevel 25.00 01/16/21 07:00 80 01/16/21 07:00 78 19 162/78 (84) 97 NIV Bilevel 25.00 01/16/21 06:00 82 19 126/92 (103) 98 NIV Bilevel 25.00 01/16/21 05:00 87 18 141/105 (117) 96 NIV Bilevel 25.00 01/16/21 04:00 80 16 132/91 (105) 96 NIV Bilevel 25.00 01/16/21 03:08 36.8 01/16/21 03:00 84 18 153/82 (105) 95 NIV Bilevel 25.00 01/16/21 02:59 81 20 96 25.00 01/16/21 02:00 62 22 123/51 (75) 96 NIV Bilevel 25.00 01/16/21 01:00 75 18 123/53 (76) 96 NIV Bilevel 25.00 01/16/21 01:00 80 01/16/21 00:00 63 19 128/66 (86) 96 NIV Bilevel 25.00 01/15/21 23:38 36.0 NIV Bilevel 25.00 01/15/21 23:00 73 19 100/54 (69) 97 NIV Bilevel 30.00 01/15/21 22:00 72 18 96/47 (63) 96 NIV Bilevel 30.00 01/15/21 21:46 78 20 96 30.00 01/15/21 21:00 80 13 128/56 (80) 95 NIV Bilevel 30.00 01/15/21 20:00 NIV Bilevel 40 01/15/21 20:00 81 16 155/94 (114) 98 NIV Bilevel 30.00 01/15/21 19:45 36.6 01/15/21 19:24 74 21 100 40.00 01/15/21 19:00 84 19 111/64 (80) 98 NIV Bilevel 30.00 01/15/21 19:00 84 01/15/21 19:00 NIV Bilevel 30.00 01/15/21 18:00 90 31 117/64 (81) 97 Nasal Cannula 10.00 01/15/21 17:00 78 25 100/39 (59) 95 Nasal Cannula 10.00 01/15/21 16:30 36.9 01/15/21 16:00 80 27 155/72 (99) 98 Nasal Cannula 10.00 01/15/21 15:00 77 22 108/60 (76) 98 Nasal Cannula 10.00 01/15/21 14:00 96 15 129/70 (89) 100 Nasal Cannula 10.00 01/15/21 13:25 100 NIV Bilevel 40 01/15/21 13:23 80 27 100 40.00 01/15/21 13:00 79 14 142/73 (96) 98 Nasal Cannula 10.00 01/15/21 12:35 80 01/15/21 12:00 73 18 130/78 (95) 99 Nasal Cannula 10.00 01/15/21 11:44 77 29 97 40.00 01/15/21 11:39 36.1 01/15/21 11:00 81 24 145/70 (95) 98 Nasal Cannula 10.00 01/15/21 10:54 74 I & O 01/16/21 06:59 Intake Total 822.5 ml Output Total 285 ml Balance 537.5 ml Height & Weight Height: '" Weight: lbs. oz. kg; 31.41 BMI Method: General Appearance: No Apparent Distress, Obese HEENT: PERRL/EOMI, Moist Mucous Membranes; No Scleral Icterus (L), No Scleral Icterus (R) Neck: Normal Inspection, Supple Respiratory: Lungs Clear, No Accessory Muscle Use, Other (tachypnea) Cardiovascular: Regular Rate, Rhythm, No Murmur Capillary Refill: Less Than 3 Seconds Gastrointestinal: soft; No distended, No guarding; tenderness (Right upper q uadrant) Extremity: Normal Capillary Refill, No Calf Tenderness, No Pedal Edema Neurologic/Psychiatric: Alert, Oriented x3 Skin: Normal Color, Warm/Dry Results Lab Laboratory Tests 01/15/21 04:39 01/16/21 04:03 Assessment/Plan Assessment/Plan Acute resp failure, resp acidosis - ? sedated with pain meds, ? br - spas, ? VO - received 3l IVF since admission. 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 Plans for transfer for ERCP -Liver enzymes trending down and hepatitis panel negative - IV abx - Sx consulted Elevated D dimer -heparin gtt was initiated on admission- VQ ordered ,not done yet renal transplant - tacrolimus + prednisoone 5 Lines : peripf (Central Line Necessity Reviewed) Sotom[place]or: + OG: Nutrition: npo Analgesia: will hold pain med s Anxiety/ delirium VTE Prophylaxis: hep gtt Stress Ulcer Prophylaxis: na Glycemic Control: CHEL LAUREN MD Jan 16, 2021 09:32
== END 2021-01-16 11:23 | disposition short-term general hospital (02) | DRG 871 ==
LOC: EDUNIT# 06:41 → ER 06:44 → 4TH 19:40 → ICU 01-15 10:40
PROVIDERS: ADMIT Family Medicine; ATTEND Family Medicine
PROC: 5A09357 Assistance with Respiratory Ventilation, Less than 24 Consecutive Hours, Continuous Positive Airway Pressure (ICD-10-PCS; principal; 2021-01-15)
DX: A41.9 Sepsis, unspecified organism (principal); J96.01 Acute respiratory failure with hypoxia; J96.02 Acute respiratory failure with hypercapnia; B17.9 Acute viral hepatitis, unspecified; Z94.0 Kidney transplant status; D84.9 Immunodeficiency, unspecified; E87.2 Acidosis; K81.9 Cholecystitis, unspecified; Z96.649 Presence of unspecified artificial hip joint; Z20.822 Contact with and (suspected) exposure to COVID-19; I25.10 Atherosclerotic heart disease of native coronary artery without angina pectoris; R11.2 Nausea with vomiting, unspecified; G89.29 Other chronic pain; M54.9 Dorsalgia, unspecified; R10.11 Right upper quadrant pain; I10 Essential (primary) hypertension; E11.9 Type 2 diabetes mellitus without complications; Z88.0 Allergy status to penicillin; Z91.041 Radiographic dye allergy status; Z91.040 Latex allergy status; Z95.1 Presence of aortocoronary bypass graft; Z79.82 Long term (current) use of aspirin; Z79.4 Long term (current) use of insulin; Z79.899 Other long term (current) drug therapy
CPT/HCPCS: 36410; 36415; 51702; 71045; 74176; 76705; 76937; 78226; 80053; 80061; 80074; 81000; 82140; 82805; 82947; 83605; 83615; 83690; 83735; 83874; 84145; 84484; 85007; 85025; 85027; 85379; 85610; 85730; 86141; 87040; 87077; 87088; 87186; 87636; 93005; 93041; 94640; 94660; 96361; 96365; 96367; 96372; 96375; 96376